=== PATIENT | male | born 1960 | race African-American/Black ===

== ENCOUNTER 2017-11-15 11:37 | Emergency (ER) | payer MEDICAID ==
[~2017-11-15] VITALS: Ht 182.9 cm; Wt 80.0 kg
[2017-11-15] MEDS ORDERED: ALBU2.5V13 IH (11:43)
[2017-11-15 12:46] LABS: BASOPHILS % 0.5 % (0.0-2.0); EOSINOPHILS % 0.1 % (0.0-5.0); HEMATOCRIT. 44.4 % (42.0-52.0); HEMOGLOBIN. 14.8 g/dL (14.0-18.0); MEAN CORPUSCULAR HEMOGLOBIN 28.2 pg (28.0-32.0); MEAN CORPUSCULAR VOLUME 84.5 fL (80.0-94.0); MONOCYTES % 13.7 % (2.0-8.0); NEUTROPHILS % 56.7 % (40.0-76.0); PLATELET 139 x1000/uL (130-400); RED BLOOD CELL COUNT 5.26 mill/uL (4.7-6.1); RED CELL DISTRIBUTION WIDTH 13.8 % (11.6-14.6)
[2017-11-15 12:54] LABS: INR 1.1; PROTHROMBIN TIME 11.4 sec (9.4-11.6)
[2017-11-15 12:56] LABS: CHLORIDE 100 mEq/L (98-107)
[2017-11-15 13:01] LABS: TROPONIN I < 0.02 ng/mL (0.00-0.04)
[2017-11-15 15:09] LABS: *AMPHETAMINES SCREEN URINE NEGATIVE (NEGATIVE); *BARBITURATES SCREEN URINE NEGATIVE (NEGATIVE); *BENZODIAZEPINES SCREEN URINE NEGATIVE (NEGATIVE); *COCAINE SCREEN URINE NEGATIVE (NEGATIVE); CANNABINOID URINE SCREEN PRESUMTIVE POSITIVE (NEGATIVE); METHADONE URINE SCREEN NEGATIVE (NEGATIVE); OPIATES URINE SCREEN NEGATIVE (NEGATIVE); PHENCYCLIDINE URINE SCREEN NEGATIVE (NEGATIVE)
[2017-11-15 15:57] VITALS: BP 138/83
== END 2017-11-15 15:58 | disposition home or self-care (01) ==
LOC: ER 11:37
DX: B34.9 Viral infection, unspecified (principal)
CPT/HCPCS: 36415; 71045; 80048; 80305; 82962; 83880; 84484; 85025; 85610; 93005; 99285

== ENCOUNTER 2022-02-18 09:24 | Inpatient (IN) | payer MEDICAID, OTHER ==
[~2022-02-18] VITALS: Ht 167.6 cm; Wt 68.9 kg
[~2022-02-18 09:24] MED LIST: ALBU2.5V13 IH; CELE200C PO; CYCL10TA21 PO; HYDR-4009 PO; HYDR200T35 PO; METH2.5T PO; P20 PO
[2022-02-18] MEDS ORDERED: SODIUM CHLORIDE 0.9% 1,000 ML IV ONE (10:15)
[2022-02-18 11:00] LABS: BASOPHILS % 0.8 % (0.0-2.0); EOSINOPHILS % 1.3 % (0.0-5.0); HEMATOCRIT. 40.3 % (42.0-52.0); HEMOGLOBIN. 13.1 g/dL (14.0-18.0); LYMPHOCYTES % 21.3 % (20.0-50.0); MEAN CORPUSCULAR HEMOGLOBIN 26.8 pg (28.0-32.0); MEAN CORPUSCULAR VOLUME 82.5 fL (80.0-94.0); MEAN PLATELET VOLUME 8.2 fl (7.4-10.4); MONOCYTES % 9.7 % (2.0-8.0); NEUTROPHILS % 66.9 % (40.0-76.0); PLATELET 315 x1000/uL (130-400); RED BLOOD CELL COUNT 4.89 mill/uL (4.7-6.1); RED CELL DISTRIBUTION WIDTH 17.4 % (11.6-14.6)
[2022-02-18 11:14] LABS: CHLORIDE 107 mEq/L (98-107)
[2022-02-18] MEDS ORDERED: PREDNISONE 20MG TABLET PO ONE (11:15)
[2022-02-18 11:23] LABS: CLARITY URINE CLEAR (CLEAR); COLOR URINE YELLOW (YELLOW); KETONES URINE NEGATIVE (NEGATIVE); LEUKOCYTE ESTERASE URINE NEGATIVE (NEGATIVE); NITRITE URINE NEGATIVE (NEGATIVE); OCCULT BLOOD URINE NEGATIVE (NEGATIVE); PH URINE 6.5 (4.5-8.0); PROTEIN URINE NEGATIVE (NEGATIVE); SPECIFIC GRAVITY URINE 1.015 (1.005-1.030)
[2022-02-18] MEDS ORDERED: PIPERACILLIN/TAZ 3.375G PREMIX 50 ML IV ONE (12:45)
[2022-02-18 13:14] LABS: INR 1.1; PROTHROMBIN TIME 11.4 sec (9.6-11.0)
[2022-02-18] MEDS ORDERED: IOHEXOL-300 100 ML BOTTLE ONE (13:22)
[2022-02-18 14:00] VITALS: BP 156/93
[2022-02-18] MEDS ORDERED: DIPHENHYDRAMINE 50MG/ML VIAL IV PRN (14:00)
[2022-02-18] MEDS ORDERED: NALOXONE HCL 0.4MG/ML VIAL IV PRN (14:00)
[2022-02-18] MEDS ORDERED: CLONIDINE 0.1MG TABLET PO PRN (14:00)
[2022-02-18] MEDS ORDERED: IPRATROPIUM/ALBUTEROL 0.5-3(2.5)MG/3ML NEB HHN PRN (14:00)
[2022-02-18] MEDS ORDERED: ACETAMINOPHEN 325MG TABLET PO PRN (14:00)
[2022-02-18] MEDS ORDERED: ONDANSETRON HCL 4MG/2ML INJ IV PRN (14:00)
[2022-02-18] MEDS: HYDROCODONE/ACETAMINOPHEN 5/325MG TABLET PO PRN ×2 (15:54→20:44)
[2022-02-18 16:00] VITALS: BP 156/93
[2022-02-18 20:00] VITALS: BP 153/86
[2022-02-19] VITALS: BP 112/62
[2022-02-19] MEDS: HYDROCODONE/ACETAMINOPHEN 5/325MG TABLET PO PRN ×4 (01:14→17:25)
[2022-02-19 04:00] VITALS: BP 145/92
[2022-02-19 06:47] LABS: EOSINOPHILS % 0.8 % (0.0-5.0); HEMATOCRIT. 36.7 % (42.0-52.0); HEMOGLOBIN. 11.8 g/dL (14.0-18.0); LYMPHOCYTES % 32.2 % (20.0-50.0); MEAN CORPUSCULAR HEMOGLOBIN 26.3 pg (28.0-32.0); MEAN CORPUSCULAR VOLUME 81.9 fL (80.0-94.0); MEAN PLATELET VOLUME 8.5 fl (7.4-10.4); MONOCYTES % 14.2 % (2.0-8.0); NEUTROPHILS % 51.8 % (40.0-76.0); PLATELET 276 x1000/uL (130-400); RED BLOOD CELL COUNT 4.48 mill/uL (4.7-6.1); RED CELL DISTRIBUTION WIDTH 17.1 % (11.6-14.6)
[2022-02-19 07:59] LABS: CHLORIDE 107 mEq/L (98-107)
[2022-02-19 08:00] VITALS: BP 145/92
[2022-02-19] MEDS: PREDNISONE 20MG TABLET PO SCH ×2 (09:09→17:25)
[2022-02-19 12:00] VITALS: BP 151/86
[2022-02-19] MEDS: PANTOPRAZOLE 40MG DR TABLET PO SCH (14:22)
[2022-02-19 16:05] VITALS: BP 119/77
[2022-02-19 20:00] VITALS: BP 148/97
[2022-02-19] MEDS: CELECOXIB 200MG CAPSULE PO SCH (22:09)
[2022-02-19] MEDS: HYDROXYCHLOROQUINE SULFATE 200MG TABLET PO SCH (22:10)
[2022-02-20] MEDS: METHYLPREDNISOLONE SOD SUCC 40 MG/ML VIAL IV SCH ×4 (00:39→17:01)
[2022-02-20] MEDS: HYDROCODONE/ACETAMINOPHEN 5/325MG TABLET PO PRN ×3 (00:39→15:11)
[2022-02-20 04:00] VITALS: BP 150/87
[2022-02-20] MEDS: PANTOPRAZOLE 40MG DR TABLET PO SCH (06:27)
[2022-02-20 07:29] LABS: CREATINE KINASE 73 IU/L (39-308)
[2022-02-20 08:00] VITALS: BP 154/92
[2022-02-20] MEDS: METHOTREXATE SODIUM 2 . 5MG TABLET PO SCH ×3 (08:22→17:02)
[2022-02-20] MEDS: CELECOXIB 200MG CAPSULE PO SCH ×2 (08:22→17:02)
[2022-02-20] MEDS: HYDROXYCHLOROQUINE SULFATE 200MG TABLET PO SCH ×2 (08:22→17:02)
[2022-02-20] MEDS: PREDNISONE 20MG TABLET PO SCH ×2 (08:22→17:02)
[2022-02-20] MEDS ORDERED: HYDR200T35 PO (15:52)
[2022-02-20] MEDS ORDERED: CELE200C PO (15:52)
[2022-02-20] MEDS ORDERED: PANT40TA51 MT (15:52)
[2022-02-20] MEDS ORDERED: FOLI-43 MT (15:52)
[2022-02-20] MEDS ORDERED: METH2.5T PO (15:52)
[2022-02-20] MEDS ORDERED: P20 MT (15:52)
[2022-02-20 16:00] VITALS: BP 139/89
[2022-02-20 18:01] VITALS: BP 139/89
[2022-02-23 15:09] LABS: ACTIN (SMOOTH MUSCLE) ANTIBODY 55 Units (0-19); ANA IFA Positive (.)
[2022-02-27 13:06] LABS: ATYPICAL P-ANCA <1:20 titer (Neg:<1:20); CYTOPLASMIC C-ANCA <1:20 titer (Neg:<1:20); PERINUCLEAR P-ANCA <1:20 titer (Neg:<1:20)
[2022-02-28 11:51] LABS: ANTI-MYELOPEROXIDASE AB < 0.2; ANTI-PROTEINASE 3 ABS < 0.2
== END 2022-02-20 18:43 | disposition home or self-care (01) | DRG 346 ==
LOC: ER 09:24 → 6EST 12:34 → ENRESERV 12:51
PROVIDERS: ADMIT Internal Medicine; ATTEND Internal Medicine
DX: M31.6 Other giant cell arteritis (principal); E88.09 Other disorders of plasma-protein metabolism, not elsewhere classified; D72.810 Lymphocytopenia; I10 Essential (primary) hypertension; M51.36 Other intervertebral disc degeneration, lumbar region; M51.37 Other intervertebral disc degeneration, lumbosacral region; J45.909 Unspecified asthma, uncomplicated; M77.9 Enthesopathy, unspecified; R73.03 Prediabetes; M50.323 Other cervical disc degeneration at C6-C7 level; R70.0 Elevated erythrocyte sedimentation rate; R79.82 Elevated C-reactive protein (CRP); Z88.8 Allergy status to other drugs, medicaments and biological substances; Z79.899 Other long term (current) drug therapy; H02.823 Cysts of right eye, unspecified eyelid
CPT/HCPCS: 36415; 70487; 71045; 73220; 73718; 80053; 81003; 82085; 82550; 82595; 83520; 83605; 85025; 85651; 86140; 86256; 86431; 93970; 99285; J2920; J7030; J7512; J8610; Q9967

== ENCOUNTER 2022-08-04 08:47 | Inpatient (IN) | payer MEDICAID, OTHER ==
[~2022-08-04] VITALS: Ht 180.3 cm; Wt 66.2 kg
[~2022-08-04 08:47] MED LIST changes: +FOLI-43 MT; +P20 MT; -P20 PO; +PANT40TA51 MT
[2022-08-04] MEDS ORDERED: ACETAMINOPHEN 325MG TABLET PO ONE (13:00)
[2022-08-04] MEDS ORDERED: FLUORESCEIN SODIUM 1MG/STRIP LEFTEYE ONE (13:00)
[2022-08-04] MEDS ORDERED: PREDNISONE 20MG TABLET PO ONE (13:15)
[2022-08-04] MEDS ORDERED: SODIUM CHLORIDE 0.9% 1,000 ML IV ONE (13:15)
[2022-08-04] MEDS ORDERED: HYDROCODONE/ACETAMINOPHEN 5/325MG TABLET PO ONE (13:15)
[2022-08-04 14:01] LABS: CHLORIDE 99 mEq/L (98-107)
[2022-08-04 14:17] LABS: CLARITY URINE CLEAR (CLEAR); COLOR URINE YELLOW (YELLOW); KETONES URINE 3+ (NEGATIVE); LEUKOCYTE ESTERASE URINE NEGATIVE (NEGATIVE); NITRITE URINE NEGATIVE (NEGATIVE); OCCULT BLOOD URINE NEGATIVE (NEGATIVE); PROTEIN URINE TRACE (NEGATIVE); SPECIFIC GRAVITY URINE 1.022 (1.005-1.030)
[2022-08-04 14:38] LABS: BASOPHILS % 1.3 % (0.0-2.0); EOSINOPHILS % 1.3 % (0.0-5.0); HEMATOCRIT. 40.8 % (42.0-52.0); HEMOGLOBIN. 13.3 g/dL (14.0-18.0); LYMPHOCYTES % 17.4 % (20.0-50.0); MEAN CORPUSCULAR HEMOGLOBIN 26.6 pg (28.0-32.0); PLATELET 288 x1000/uL (130-400); RED BLOOD CELL COUNT 4.98 mill/uL (4.7-6.1); RED CELL DISTRIBUTION WIDTH 14.3 % (11.6-14.6)
[2022-08-04 20:29] VITALS: BP 147/66
[2022-08-04 21:58] VITALS: BP 147/66
[2022-08-04] MEDS ORDERED: ONDANSETRON HCL 4MG/2ML INJ IV PRN (22:45)
[2022-08-04] MEDS ORDERED: ACETAMINOPHEN 325MG TABLET PO PRN (22:45)
[2022-08-04] MEDS ORDERED: NALOXONE HCL 0.4MG/ML VIAL IV PRN (22:45)
[2022-08-05] VITALS (7 sets, daily range): BP systolic 127–178; BP diastolic 65–87
[2022-08-05] MEDS: PREDNISONE 20MG TABLET PO SCH (08:48)
[2022-08-05] MEDS ORDERED: CLONIDINE 0.1MG TABLET PO PRN (09:30)
[2022-08-05] MEDS: HYDROCODONE/ACETAMINOPHEN 10/325MG TABLET PO PRN ×3 (09:54→23:52)
[2022-08-05] MEDS: AMLODIPINE 10MG TABLET PO SCH (09:55)
[2022-08-06 04:21] VITALS: BP 165/97
[2022-08-06 08:00] VITALS: BP 146/67
[2022-08-06] MEDS: AMLODIPINE 10MG TABLET PO SCH (08:10)
[2022-08-06] MEDS: PREDNISONE 20MG TABLET PO SCH (08:10)
[2022-08-06 12:00] VITALS: BP 147/81
[2022-08-06] MEDS ORDERED: PREDNISONE 20MG TABLET PO SCH (13:00)
[2022-08-06] MEDS ORDERED: SULFACETAMIDE SODIUM 10% OPHTH DROPS 15ML LEFTEYE SCH (13:00)
[2022-08-06] MEDS ORDERED: P20 PO (13:37)
[2022-08-06 14:33] VITALS: BP 147/81
[2022-08-06 16:00] VITALS: BP 145/78
[2022-08-06 17:33] LABS: CREATINE KINASE 64 IU/L (39-308)
[2022-08-09 10:09] LABS: ACTIN (SMOOTH MUSCLE) ANTIBODY 67 Units (0-19)
[2022-08-10 14:09] LABS: ANA IFA Positive (.)
== END 2022-08-06 16:55 | disposition home or self-care (01) | DRG 346 ==
LOC: ER 08:56 → 8WST 15:18 → EDBEDREQ 15:27 → EDBEDREQTM 15:27
PROVIDERS: ADMIT Internal Medicine; ATTEND Internal Medicine
PROC: 08J1XZZ Inspection of Left Eye, External Approach (ICD-10-PCS; principal; 2022-08-04)
DX: M31.6 Other giant cell arteritis (principal); E87.1 Hypo-osmolality and hyponatremia; I10 Essential (primary) hypertension; Z20.822 Contact with and (suspected) exposure to COVID-19; M06.9 Rheumatoid arthritis, unspecified; H10.9 Unspecified conjunctivitis; M77.9 Enthesopathy, unspecified; M51.36 Other intervertebral disc degeneration, lumbar region; J45.909 Unspecified asthma, uncomplicated; F12.90 Cannabis use, unspecified, uncomplicated
CPT/HCPCS: 36415; 71045; 80053; 81003; 82085; 82550; 85025; 85651; 86235; 86256; 86431; 87426; 99285; J7030; J7512

== ENCOUNTER 2022-09-26 09:55 | Emergency (ER) | payer MEDICAID, OTHER ==
[~2022-09-26] VITALS: Ht 175.3 cm; Wt 73.0 kg
[~2022-09-26 09:55] MED LIST changes: -ALBU2.5V13 IH; -CELE200C PO; -CYCL10TA21 PO; -FOLI-43 MT; -HYDR200T35 PO; -METH2.5T PO; -P20 MT; +P20 PO; -PANT40TA51 MT
[2022-09-26 10:10] VITALS: BP 141/94
[2022-09-26] MEDS ORDERED: MAGNESIUM/ALUMINUM HYDROXIDE/SIMETHICONE 30ML UDC PO ONE (10:45)
[2022-09-26] MEDS ORDERED: VISCOUS LIDOCAINE 2% 15 ML UDC MM ONE (10:45)
[2022-09-26] MEDS ORDERED: ONDANSETRON 4MG ODT PO ONE (10:45)
[2022-09-26 12:15] LABS: BASOPHILS % 1.2 % (0.0-2.0); HEMATOCRIT. 47.3 % (42.0-52.0); HEMOGLOBIN. 16.2 g/dL (14.0-18.0); LYMPHOCYTES % 30.2 % (20.0-50.0); MEAN CORPUSCULAR HEMOGLOBIN 28.5 pg (28.0-32.0); MEAN CORPUSCULAR VOLUME 83.1 fL (80.0-94.0); MONOCYTES % 13.3 % (2.0-8.0); NEUTROPHILS % 54.3 % (40.0-76.0); RED BLOOD CELL COUNT 5.69 mill/uL (4.7-6.1); RED CELL DISTRIBUTION WIDTH 17.4 % (11.6-14.6)
[2022-09-26 12:25] LABS: CHLORIDE 103 mEq/L (98-107)
[2022-09-26 12:34] LABS: ETHANOL BLOOD < 10 mg/dL
[2022-09-26 12:37] LABS: MEAN PLATELET VOLUME 8.6 fl (7.4-10.4); PLATELET 267 x1000/uL (130-400)
[2022-09-26] MEDS ORDERED: ONDANSETRON 4MG ODT PO NR (14:45)
[2022-09-26] MEDS ORDERED: VISCOUS LIDOCAINE 2% 15 ML UDC MM NR (14:45)
[2022-09-26] MEDS ORDERED: MAGNESIUM/ALUMINUM HYDROXIDE/SIMETHICONE 30ML UDC PO NR (14:45)
[2022-09-26 14:54] LABS: CLARITY URINE CLEAR (CLEAR); COLOR URINE YELLOW (YELLOW); KETONES URINE 1+ (NEGATIVE); LEUKOCYTE ESTERASE URINE NEGATIVE (NEGATIVE); NITRITE URINE NEGATIVE (NEGATIVE); OCCULT BLOOD URINE NEGATIVE (NEGATIVE); PROTEIN URINE TRACE (NEGATIVE); SPECIFIC GRAVITY URINE 1.022 (1.005-1.030)
[2022-09-26 15:13] LABS: *AMPHETAMINES SCREEN URINE NEGATIVE (NEGATIVE); *BARBITURATES SCREEN URINE NEGATIVE (NEGATIVE); *BENZODIAZEPINES SCREEN URINE NEGATIVE (NEGATIVE); *COCAINE SCREEN URINE NEGATIVE (NEGATIVE); CANNABINOID URINE SCREEN PRESUMTIVE POSITIVE (NEGATIVE); METHADONE URINE SCREEN NEGATIVE (NEGATIVE); OPIATES URINE SCREEN NEGATIVE (NEGATIVE); PHENCYCLIDINE URINE SCREEN NEGATIVE (NEGATIVE)
[2022-09-26] MEDS ORDERED: MAG-55 MT (15:47)
[2022-09-26] MEDS ORDERED: PROT40 MT (15:47)
== END 2022-09-26 16:36 | disposition home or self-care (01) ==
LOC: ER 09:55
DX: R07.9 Chest pain, unspecified (principal); I10 Essential (primary) hypertension; J45.909 Unspecified asthma, uncomplicated
CPT/HCPCS: 36415; 71045; 80053; 80305; 80320; 81003; 83880; 84484; 85025; 93005; 99285; Q0162; G0480

== ENCOUNTER 2025-04-03 17:03 | Inpatient (IN) | payer MEDICARE, MEDICAID ==
[~2025-04-03] VITALS: Ht 177.8 cm; Wt 101.2 kg
[~2025-04-03 17:03] MED LIST changes: +ASPI-1497 MT; +CLOP-31 PO; +CLOP75TA33 PO; +LIP40 PO; +MAG-55 MT; +METR-167 MT; +MIDO5TAB4 MT; -P20 PO; +PROT40 MT; +TAMS-54 MT
[2025-04-03] MEDS: ONDANSETRON HCL 4MG/2ML INJ IV ONE (17:40)
[2025-04-03] MEDS: SODIUM CHLORIDE 0.9% 1,000 ML IV ONE (17:41)
[2025-04-03] MEDS: MORPHINE SULFATE 4 MG/ML INJ (FOR IV/IM USE) IV ONE (17:41)
[2025-04-03 17:42] LABS: BASOPHILS % 1.2 % (0.0-2.0); EOSINOPHILS % 0.7 % (0.0-5.0); HEMATOCRIT. 38.7 % (42.0-52.0); HEMOGLOBIN. 12.5 g/dL (14.0-18.0); LYMPHOCYTES % 23.6 % (20.0-50.0); MEAN PLATELET VOLUME 10.1 fl (7.4-10.4); MONOCYTES % 7.7 % (2.0-8.0); NEUTROPHILS % 66.8 % (40.0-76.0); PLATELET 186 x1000/uL (130-400); RED BLOOD CELL COUNT 4.59 mill/uL (4.7-6.1); RED CELL DISTRIBUTION WIDTH 17.6 % (11.6-14.6)
[2025-04-03 17:57] LABS: INR 1.1
[2025-04-03 17:58] LABS: CREATININE 0.9 mg/dL (0.6-1.3); ETHANOL BLOOD < 10 mg/dL (<10); UREA NITROGEN BLOOD 12 mg/dL (9-23)
[2025-04-03 18:00] LABS: ASPARTATE AMINOTRANSFERASE 28 IU/L (<34); BILIRUBIN DIRECT 0.2 mg/dL (<=3.0); BILIRUBIN TOTAL 0.5 mg/dL (0.1-1.0); PROTEIN TOTAL 8.3 g/dL (6.0-8.3)
[2025-04-03] MEDS ORDERED: HYDROMORPHONE HCL/PF 2MG/ML INJ IV ONE (18:00)
[2025-04-03] MEDS: HYDROMORPHONE HCL/PF 1MG/ML INJ IV NR (18:49)
[2025-04-03] MEDS: SODIUM CHLORIDE 0.9% (SEPSIS BOLUS) IV ONE (20:26)
[2025-04-03] MEDS: PIPERACILLIN/TAZO 3.375G/50ML 50 ML IV ONE (20:27)
[2025-04-03] MEDS: VANCOMYCIN 1G PREMIX 200 ML IV ONE (20:42)
[2025-04-03 20:49] LABS: CLARITY URINE CLOUDY (CLEAR); COLOR URINE YELLOW (YELLOW); GLUCOSE URINE NEGATIVE (NEGATIVE); KETONES URINE 1+ (NEGATIVE); LEUKOCYTE ESTERASE URINE 2+ (NEGATIVE); NITRITE URINE POSITIVE (NEGATIVE); OCCULT BLOOD URINE 2+ (NEGATIVE); PH URINE 7.0 (4.5-8.0); PROTEIN URINE TRACE (NEGATIVE); SPECIFIC GRAVITY URINE 1.064 (1.005-1.030); UROBILINOGEN URINE 1.0 E.U./dL (0.2-1.0)
[2025-04-03 20:56] LABS: *AMPHETAMINES SCREEN URINE NEGATIVE (NEGATIVE); *BARBITURATES SCREEN URINE NEGATIVE (NEGATIVE); *BENZODIAZEPINES SCREEN URINE NEGATIVE (NEGATIVE); *COCAINE SCREEN URINE NEGATIVE (NEGATIVE)
[2025-04-03 20:57] LABS: CANNABINOID URINE SCREEN PRESUMPTIVE POSITIVE (NEGATIVE); ECSTASY MDMA SCREEN URINE NEGATIVE (NEGATIVE); METHADONE URINE SCREEN NEGATIVE (NEGATIVE); OPIATES URINE SCREEN PRESUMPTIVE POSITIVE (NEGATIVE); PHENCYCLIDINE URINE SCREEN NEGATIVE (NEGATIVE)
[2025-04-03 20:59] LABS: BACTERIA URINE 2+; SQUAMOUS EPITHELIAL CELL URINE 1+ /lpf (RARE/1+)
[2025-04-03] MEDS: ALBUTEROL (0.083%) 2.5MG/3ML NEB HHN SCH (21:00)
[2025-04-03] MEDS: IPRATROPIUM BROMIDE (0.02%) 0.5MG/2.5ML NEB HHN SCH (21:00)
[2025-04-03 21:19] LABS: BG BASE EXCESS -11.3 mmol/L (-2.0-3.0); BG CARBOXYHEMOGLOBIN 0.7 % (0.5-1.5); BG DEOXYHEMOGLOBIN 7.5 % (0.0-5.0); BG FLOW(L/min) 15.00 L/min; BG HCO3 ACT 18.7 mmol/L (21.0-28.0); BG METHEMOGLOBIN 0.3 % (0.5-1.5); BG OXYGEN SATURATION 92.4 % (94.0-98.0); BG OXYHEMOGLOBIN 91.5 % (94.0-98.0); BG PCO2 58.8 mmHg (35.0-48.0); BG PH 7.120 (7.350-7.450); BG PO2 84.1 mmHg (83.0-108.0); BG SAMPLE SITE RIGHT RADIAL; BG TOTAL HEMOGLOBIN 15.1 g/dL (13.5-17.5); BG VENT MODE MASK - NRB
[2025-04-03 21:19] LABS: TROPONIN I HIGH SENSITIVITY 484 ng/L (3.0-53)
[2025-04-03] MEDS: METHYLPREDNISOLONE SOD SUCC 125MG/2ML (ACT-O-VIAL) IV ONE (21:33)
[2025-04-03] MEDS: MAGNESIUM 2 G PREMIX 50 ML IV ONE (21:34)
[2025-04-03] MEDS ORDERED: ACETAMINOPHEN 325MG TABLET PO PRN (22:15)
[2025-04-03] MEDS ORDERED: MAGNESIUM/ALUMINUM HYDROXIDE/SIMETHICONE 30ML UDC PO PRN (22:15)
[2025-04-03] MEDS ORDERED: IPRATROPIUM/ALBUTEROL 0.5-3(2.5)MG/3ML NEB NEB PRN (22:15)
[2025-04-03] MEDS ORDERED: HYDROCODONE/ACETAMINOPHEN 5/325MG TABLET PO PRN (22:15)
[2025-04-03] MEDS ORDERED: MORPHINE SULFATE 2 MG/ML INJ (NOT FOR IM USE) IV PRN (22:15)
[2025-04-03] MEDS ORDERED: NALOXONE HCL 0.4MG/ML VIAL IV PRN (22:30)
[2025-04-03 22:55] LABS: INR 2.7
[2025-04-03] MEDS ORDERED: AZITHROMYCIN 500MG/250ML 250 ML IV SCH (23:00)
[2025-04-03] MEDS ORDERED: AZITHROMYCIN 500 MG in DEXT 5% WATER 250 ML IV SCH (23:00)
[2025-04-03 23:14] VITALS: BP 139/106; PULSE 113; RESP 33; TEMP 36.5848
[2025-04-03 23:15] VITALS: RESP 38
[2025-04-03] MEDS ORDERED: IOHEXOL-300 100 ML BOTTLE ONE (23:15)
[2025-04-03 23:55] VITALS: RESP 33
[2025-04-04] VITALS (144 sets, daily range): BP systolic 31–155; BP diastolic 14–135; PULSE 51–154; RESP 9–40; TEMP 36.1–37.1; O2SAT 66–100
[2025-04-04 00:02] LABS: BG BASE EXCESS -13.6 mmol/L (-2.0-3.0); BG CARBOXYHEMOGLOBIN 0.8 % (0.5-1.5); BG DEOXYHEMOGLOBIN 12.8 % (0.0-5.0); BG FRACTION INSPIRED OXYGEN 90; BG HCO3 ACT 15.7 mmol/L (21.0-28.0); BG METHEMOGLOBIN 0.3 % (0.5-1.5); BG OXYGEN SATURATION 87.1 % (94.0-98.0); BG OXYHEMOGLOBIN 86.1 % (94.0-98.0); BG PCO2 49.1 mmHg (35.0-48.0); BG PH 7.123 (7.350-7.450); BG PO2 68.0 mmHg (83.0-108.0); BG SAMPLE SITE LEFT BRACHIAL; BG TOTAL HEMOGLOBIN 16.1 g/dL (13.5-17.5); BG VENT MODE MASK - BIPAP
[2025-04-04] MEDS: AZITHROMYCIN 500MG/250ML 250 ML IV SCH (00:17)
[2025-04-04] MEDS ORDERED: IPRATROPIUM/ALBUTEROL 0.5-3(2.5)MG/3ML NEB NEB PRN (01:15)
[2025-04-04] MEDS ORDERED: AZITHROMYCIN 500MG/250ML 250 ML IV SCH ×2 (01:15→21:00)
[2025-04-04] MEDS ORDERED: FENTANYL 2500MCG/250ML PMX 250 ML IV ONE (01:15)
[2025-04-04] MEDS ORDERED: CEFTRIAXONE 1GM/50ML 50 ML IV ONE (01:15)
[2025-04-04] MEDS ORDERED: DOPAMINE 400MG/250ML PREMIX 250 ML IV ONE (01:31)
[2025-04-04] MEDS: PHENYLEPHRINE 50MG/250ML PMX 250 ML IV PRN (01:43)
[2025-04-04] MEDS: DOPAMINE 400MG/250ML PREMIX 250 ML IV PRN (01:43)
[2025-04-04] MEDS ORDERED: PROPOFOL 10MG/ML 100ML 100 ML IV PRN ×2 (01:45→07:45)
[2025-04-04] MEDS: SODIUM CHLORIDE 0.9% 500 ML IV ONE ×2 (02:44)
[2025-04-04 04:27] LABS: BG BASE EXCESS -19.5 mmol/L (-2.0-3.0); BG CARBOXYHEMOGLOBIN 0.6 % (0.5-1.5); BG DEOXYHEMOGLOBIN 16.2 % (0.0-5.0); BG FRACTION INSPIRED OXYGEN 100; BG HCO3 ACT 12.7 mmol/L (21.0-28.0); BG METHEMOGLOBIN 0.3 % (0.5-1.5); BG OXYGEN SATURATION 83.7 % (94.0-98.0); BG OXYHEMOGLOBIN 82.9 % (94.0-98.0); BG PCO2 55.7 mmHg (35.0-48.0); BG PEEP (cmH2O) 5.0 cmH2O; BG PH 6.975 (7.350-7.450); BG PO2 68.5 mmHg (83.0-108.0); BG SAMPLE SITE LEFT BRACHIAL; BG TIDAL VOLUME(mL) 450.0 mL; BG TOTAL HEMOGLOBIN 15.9 g/dL (13.5-17.5); BG VENT MODE AC; BG VENT RATE 16.0 set
[2025-04-04] MEDS: VASOPRESSIN 20 UNIT in SODIUM CHLORIDE 0.9% 99 ML IV PRN (04:51)
[2025-04-04] MEDS: NOREPINEPHRINE 8MG/250ML PMX 250 ML IV PRN (05:29)
[2025-04-04] MEDS ORDERED: CEFTRIAXONE 1GM/50ML 50 ML IV SCH (06:00)
[2025-04-04] MEDS: CEFTRIAXONE 1GM/50ML 50 ML IV SCH (06:30)
[2025-04-04 07:03] LABS: CREATININE 1.3 mg/dL (0.6-1.3)
[2025-04-04 07:04] LABS: UREA NITROGEN BLOOD 18 mg/dL (9-23)
[2025-04-04 07:06] LABS: PHOSPHORUS 7.9 mg/dL (2.5-4.9)
[2025-04-04 07:09] LABS: CREATINE KINASE MB FRACTION 15.1 ng/mL (0.5-3.6)
[2025-04-04] MEDS ORDERED: SODIUM BICARBONATE 8.4% 50MEQ/50ML SYR IV SCH (07:15)
[2025-04-04] MEDS: SODIUM BICARBONATE 8.4% 50MEQ/50ML SYR IV SCH ×2 (07:30→10:09)
[2025-04-04 07:36] LABS: TROPONIN I HIGH SENSITIVITY 4036.0 ng/L (3.0-53)
[2025-04-04] MEDS ORDERED: MIDAZOLAM 100MG/100ML PMX 100 ML IV PRN (07:45)
[2025-04-04] MEDS ORDERED: FENTANYL 2500MCG/250ML PMX 250 ML IV PRN (07:45)
[2025-04-04] MEDS: FENTANYL CITRATE 2,500 MCG in SODIUM CHLORIDE 0.9% 200 ML IV PRN (08:26)
[2025-04-04] MEDS: MIDAZOLAM 100MG/100ML PMX 100 ML IV PRN (08:27)
[2025-04-04] MEDS: SODIUM BICARBONATE 100 MEQ in DEXTROSE 5% WATER 900 ML IV SCH (08:59)
[2025-04-04] MEDS: METHYLPREDNISOLONE SOD SUCC 125MG/2ML (ACT-O-VIAL) IV SCH (09:12)
[2025-04-04] MEDS: THIAMINE HCL 100MG TABLET PO SCH (09:13)
[2025-04-04] MEDS: PANTOPRAZOLE SODIUM 40 MG/VIAL IV SCH (09:13)
[2025-04-04] MEDS: ASPIRIN 81MG EC TABLET PO SCH (09:15)
[2025-04-04] MEDS: ENOXAPARIN 40MG/0.4ML SYR SUBCUT SCH (09:16)
[2025-04-04 09:57] LABS: BG BASE EXCESS -12.8 mmol/L (-2.0-3.0); BG CARBOXYHEMOGLOBIN 0.9 % (0.5-1.5); BG DEOXYHEMOGLOBIN 12.5 % (0.0-5.0); BG FRACTION INSPIRED OXYGEN 100; BG HCO3 ACT 14.5 mmol/L (21.0-28.0); BG METHEMOGLOBIN 0.1 % (0.5-1.5); BG OXYGEN SATURATION 87.4 % (94.0-98.0); BG OXYHEMOGLOBIN 86.5 % (94.0-98.0); BG PCO2 38.2 mmHg (35.0-48.0); BG PEEP (cmH2O) 10.0 cmH2O; BG PH 7.198 (7.350-7.450); BG PO2 57.8 mmHg (83.0-108.0); BG SAMPLE SITE RIGHT BRACHIAL; BG TIDAL VOLUME(mL) 500.0 mL; BG TOTAL HEMOGLOBIN 14.2 g/dL (13.5-17.5); BG VENT MODE VENT - AC; BG VENT RATE 26.0 set
[2025-04-04] MEDS ORDERED: DOCUSATE SODIUM 100MG CAPSULE PO PRN (10:30)
[2025-04-04] MEDS ORDERED: MORPHINE SULFATE 2 MG/ML INJ (NOT FOR IM USE) IV PRN (10:30)
[2025-04-04] MEDS ORDERED: ENOXAPARIN 40MG/0.4ML SYR SUBCUT SCH (10:30)
[2025-04-04] MEDS ORDERED: ONDANSETRON HCL 4MG/2ML INJ IV PRN (10:30)
[2025-04-04] MEDS: CALCIUM GLUCONATE 100MG/ML 10ML VIAL IV SCH (10:41)
[2025-04-04] MEDS: SODIUM POLYSTYRENE SULFONATE 15 G/60 ML BOT PO SCH (10:49)
[2025-04-04] MEDS: SODIUM CHLORIDE 0.9% 1,000 ML IV SCH (10:50)
[2025-04-04] MEDS: DEXTROSE 50% WATER 50ML SYRINGE IV SCH (10:51)
[2025-04-04] MEDS: INSULIN REGULAR (HUMULIN R) 1000UNITS/10ML VIAL IV SCH (10:53)
[2025-04-04] MEDS: VANCOMYCIN 750MG PREMIX 150 ML IV SCH (11:15)
[2025-04-04] MEDS: IPRATROPIUM BROMIDE (0.02%) 0.5MG/2.5ML NEB HHN SCH (11:35)
[2025-04-04] MEDS: BLOOD SUGAR DIAGNOSTIC STRIP TEST SCH (12:11)
[2025-04-04 12:17] LABS: BG BASE EXCESS -11.8 mmol/L (-2.0-3.0); BG CARBOXYHEMOGLOBIN 0.9 % (0.5-1.5); BG DEOXYHEMOGLOBIN 15.5 % (0.0-5.0); BG FRACTION INSPIRED OXYGEN 100; BG HCO3 ACT 16.1 mmol/L (21.0-28.0); BG METHEMOGLOBIN 0.0 % (0.5-1.5); BG OXYGEN SATURATION 84.4 % (94.0-98.0); BG OXYHEMOGLOBIN 83.6 % (94.0-98.0); BG PCO2 43.5 mmHg (35.0-48.0); BG PEEP (cmH2O) 10.0 cmH2O; BG PH 7.185 (7.350-7.450); BG PO2 54.0 mmHg (83.0-108.0); BG SAMPLE SITE RIGHT BRACHIAL; BG TIDAL VOLUME(mL) 500.0 mL; BG TOTAL HEMOGLOBIN 14.6 g/dL (13.5-17.5); BG VENT MODE VENT - AC; BG VENT RATE 28.0 set
[2025-04-04 12:18] LABS: BASOPHILS % 0.2 % (0.0-2.0); EOSINOPHILS % 0.1 % (0.0-5.0); HEMATOCRIT. 44.0 % (42.0-52.0); HEMOGLOBIN. 13.2 g/dL (14.0-18.0); LYMPHOCYTES % 9.4 % (20.0-50.0); MEAN PLATELET VOLUME 10.8 fl (7.4-10.4); MONOCYTES % 4.9 % (2.0-8.0); NEUTROPHILS % 85.4 % (40.0-76.0); PLATELET 151 x1000/uL (130-400); RED BLOOD CELL COUNT 4.92 mill/uL (4.7-6.1); RED CELL DISTRIBUTION WIDTH 18.6 % (11.6-14.6)
[2025-04-04] MEDS: INSULIN LISPRO 100 UNITS/ML SUBCUT SCH (12:22)
[2025-04-04] MEDS: DOXYCYCLINE 100MG/100ML 100 ML IV SCH (13:16)
[2025-04-04 13:22] LABS: RESPIRATORY SYNCYTIAL VIRUS Not Detected (Not Detectd)
[2025-04-04 13:23] LABS: INFLUENZA TYPE A Presumptive Negative (Pres. Neg.); INFLUENZA TYPE B Presumptive Negative (Pres. Neg.)
[2025-04-04] MEDS: PIPERACILLIN/TAZO 3.375G/50ML 50 ML IV SCH (14:18)
[2025-04-04] MEDS: SODIUM CHLORIDE 0.9% IV SCH (15:33)
[2025-04-04] MEDS: NOREPINEPHRINE 32 MG in DEXT 5% WATER 218 ML IV PRN (15:33)
[2025-04-04] MEDS: EPINEPHRINE 10 MG in SODIUM CHLORIDE 0.9% 240 ML IV PRN (15:33)
[2025-04-04] MEDS: SODIUM BICARBONATE IV SCH (15:33)
[2025-04-04] MEDS ORDERED: NOREPINEPHRINE 32 MG in DEXT 5% WATER 218 ML IV PRN (16:00)
[2025-04-04 17:10] LABS: CREATINE KINASE MB FRACTION 18.6 ng/mL (0.5-3.6); UREA NITROGEN BLOOD 26 mg/dL (9-23)
[2025-04-04 17:12] LABS: BILIRUBIN TOTAL 0.8 mg/dL (0.1-1.0); PHOSPHORUS 3.9 mg/dL (2.5-4.9); PROTEIN TOTAL 6.2 g/dL (6.0-8.3)
[2025-04-04 17:26] LABS: TROPONIN I HIGH SENSITIVITY 3991.0 ng/L (3.0-53)
[2025-04-04 17:27] LABS: CREATININE 1.9 mg/dL (0.6-1.3)
[2025-04-04] MEDS: NA PHOS,M-B/NA PHOS,DI-BA ENEMA 118ML PR PRN (17:37)
[2025-04-04 17:52] LABS: ASPARTATE AMINOTRANSFERASE > 6000 IU/L (<34)
[2025-04-04 18:34] LABS: BG BASE EXCESS -14.8 mmol/L (-2.0-3.0); BG CARBOXYHEMOGLOBIN 1.0 % (0.5-1.5); BG DEOXYHEMOGLOBIN 9.7 % (0.0-5.0); BG FRACTION INSPIRED OXYGEN 100; BG HCO3 ACT 13.2 mmol/L (21.0-28.0); BG METHEMOGLOBIN 0.2 % (0.5-1.5); BG OXYGEN SATURATION 90.2 % (94.0-98.0); BG OXYHEMOGLOBIN 89.1 % (94.0-98.0); BG PCO2 38.1 mmHg (35.0-48.0); BG PEEP (cmH2O) 10.0 cmH2O; BG PH 7.156 (7.350-7.450); BG PO2 68.0 mmHg (83.0-108.0); BG SAMPLE SITE RIGHT RADIAL; BG TIDAL VOLUME(mL) 500.0 mL; BG TOTAL HEMOGLOBIN 14.8 g/dL (13.5-17.5); BG VENT MODE VENT - AC; BG VENT RATE 28.0 set
[2025-04-04] MEDS: SODIUM BICARBONATE 150 MEQ in SODIUM CHLORIDE 0.9% 850 ML IV SCH (20:17)
[2025-04-04] MEDS ORDERED: POLYVINYL ALCOHOL OPHTH DROPS 15ML BOTHEYE PRN (21:00)
[2025-04-04] MEDS: INSULIN REGULAR (HUMULIN R) 1000UNITS/10ML VIAL IV NR (21:45)
[2025-04-04] MEDS: DEXTROSE 50% WATER 50ML SYRINGE IV NR ×2 (21:45→22:44)
[2025-04-04] MEDS: CALCIUM GLUCONATE 1GM PREMIX 50 ML IV NR (21:46)
[2025-04-04] MEDS: VANCOMYCIN 1GM/200ML PMX (BAXTER) IV SCH (22:22)
[2025-04-04] MEDS: PHENYLEPHRINE 100 MG in DEXT 5% WATER 240 ML IV PRN (23:13)
[2025-04-05] VITALS (108 sets, daily range): BP systolic 57–134; BP diastolic 15–117; PULSE 89–136; RESP 20–30; TEMP 37.1–38.7; O2SAT 53–100
[2025-04-05 01:15] LABS: CREATININE 2.8 mg/dL (0.6-1.3)
[2025-04-05 01:17] LABS: UREA NITROGEN BLOOD 35.0 mg/dL (9-23)
[2025-04-05 03:35] LABS: BG BASE EXCESS -12.8 mmol/L (-2.0-3.0); BG CARBOXYHEMOGLOBIN 0.5 % (0.5-1.5); BG DEOXYHEMOGLOBIN 14.3 % (0.0-5.0); BG FRACTION INSPIRED OXYGEN 100; BG HCO3 ACT 14.7 mmol/L (21.0-28.0); BG METHEMOGLOBIN 0.3 % (0.5-1.5); BG OXYGEN SATURATION 85.6 % (94.0-98.0); BG OXYHEMOGLOBIN 84.9 % (94.0-98.0); BG PCO2 39.1 mmHg (35.0-48.0); BG PEEP (cmH2O) 10.0 cmH2O; BG PH 7.192 (7.350-7.450); BG PO2 56.4 mmHg (83.0-108.0); BG SAMPLE SITE ALINE; BG TIDAL VOLUME(mL) 500.0 mL; BG TOTAL HEMOGLOBIN 15.2 g/dL (13.5-17.5); BG VENT MODE VENT - AC; BG VENT RATE 28.0 set
[2025-04-05] MEDS: SODIUM BICARBONATE 8.4% 50MEQ/50ML SYR IV NR (04:14)
[2025-04-05] MEDS: SODIUM BICARBONATE 150 MEQ in DEXTROSE 5% WATER 850 ML IV SCH ×2 (05:20→22:25)
[2025-04-05] MEDS: VECURONIUM BROMIDE 50 MG in DEXTROSE 5% WATER 50 ML IV PRN (05:42)
[2025-04-05 06:10] LABS: HEMATOCRIT. 41.3 % (42.0-52.0); HEMOGLOBIN. 13.3 g/dL (14.0-18.0); RED BLOOD CELL COUNT 4.88 mill/uL (4.7-6.1); RED CELL DISTRIBUTION WIDTH 17.9 % (11.6-14.6)
[2025-04-05 06:31] LABS: CREATININE 3.3 mg/dL (0.6-1.3); TRIGLYCERIDE 79 mg/dL (0-150); UREA NITROGEN BLOOD 37 mg/dL (9-23)
[2025-04-05 06:34] LABS: PHOSPHORUS 11.9 mg/dL (2.5-4.9)
[2025-04-05 08:41] LABS: BG BASE EXCESS -8.5 mmol/L (-2.0-3.0); BG CARBOXYHEMOGLOBIN 0.5 % (0.5-1.5); BG DEOXYHEMOGLOBIN 14.7 % (0.0-5.0); BG FRACTION INSPIRED OXYGEN 100; BG HCO3 ACT 16.7 mmol/L (21.0-28.0); BG METHEMOGLOBIN 0.3 % (0.5-1.5); BG OXYGEN SATURATION 85.2 % (94.0-98.0); BG OXYHEMOGLOBIN 84.5 % (94.0-98.0); BG PCO2 34.1 mmHg (35.0-48.0); BG PEEP (cmH2O) 10.0 cmH2O; BG PH 7.308 (7.350-7.450); BG PO2 54.6 mmHg (83.0-108.0); BG SAMPLE SITE ALINE; BG TIDAL VOLUME(mL) 500.0 mL; BG TOTAL HEMOGLOBIN 15.0 g/dL (13.5-17.5); BG VENT MODE VENT - AC; BG VENT RATE 30.0 set
[2025-04-05] MEDS: ASPIRIN 81MG TABLET PO SCH (09:27)
[2025-04-05] MEDS: CALCIUM GLUCONATE 100MG/ML 10ML VIAL IV SCH (10:50)
[2025-04-05] MEDS: DEXT 5%/0.45% NACL 1000ML 1,000 ML IV SCH (10:50)
[2025-04-05] MEDS: SODIUM BICARBONATE 8.4% 50MEQ/50ML SYR IV SCH (12:16)
[2025-04-05] MEDS: ACETAMINOPHEN 650MG/20.3ML UDC NG PRN (13:02)
[2025-04-05 14:50] LABS: BG BASE EXCESS -6.9 mmol/L (-2.0-3.0); BG CARBOXYHEMOGLOBIN 0.7 % (0.5-1.5); BG DEOXYHEMOGLOBIN 12.4 % (0.0-5.0); BG FRACTION INSPIRED OXYGEN 100; BG HCO3 ACT 21.4 mmol/L (21.0-28.0); BG METHEMOGLOBIN 0.1 % (0.5-1.5); BG OXYGEN SATURATION 87.5 % (94.0-98.0); BG OXYHEMOGLOBIN 86.8 % (94.0-98.0); BG PCO2 54.3 mmHg (35.0-48.0); BG PEEP (cmH2O) 10.0 cmH2O; BG PH 7.214 (7.350-7.450); BG PIP 20.0 cmH2O; BG PO2 67.6 mmHg (83.0-108.0); BG SAMPLE SITE ALINE; BG TOTAL HEMOGLOBIN 14.6 g/dL (13.5-17.5); BG VENT MODE VENT - P/C; BG VENT RATE 20.0 set
[2025-04-05 14:59] LABS: PLATELET 113 x1000/uL (130-400)
[2025-04-05 16:27] LABS: BAND% 2.0 % (1.0-6.0); LYMPHOCYTES % MANUAL 5.0 % (20.0-50.0); MONOCYTES % MANUAL 7.0 % (2.0-8.0); NEUTROPHILS % MANUAL 86.0 % (45.0-75.0); PLATELET ESTIMATE NORMAL
[2025-04-05] MEDS: CALCIUM ACETATE 667MG CAPSULE PO SCH (17:38)
[2025-04-05] MEDS: METOCLOPRAMIDE HCL 10MG/2ML VIAL IV SCH (17:45)
[2025-04-05 19:01] LABS: UREA NITROGEN BLOOD 44.0 mg/dL (9-23)
[2025-04-05 19:03] LABS: CREATININE 4.4 mg/dL (0.6-1.3)
[2025-04-05] MEDS ORDERED: CALCIUM GLUCONATE 1,000 MG in DEXT 5% WATER 90 ML IV ONE (19:45)
[2025-04-05] MEDS ORDERED: METOCLOPRAMIDE HCL 10MG/2ML VIAL IV PRN (20:00)
[2025-04-05 20:54] LABS: BG BASE EXCESS -8.8 mmol/L (-2.0-3.0); BG CARBOXYHEMOGLOBIN 0.9 % (0.5-1.5); BG DEOXYHEMOGLOBIN 8.1 % (0.0-5.0); BG FRACTION INSPIRED OXYGEN 100; BG HCO3 ACT 19.8 mmol/L (21.0-28.0); BG METHEMOGLOBIN 0.2 % (0.5-1.5); BG OXYGEN SATURATION 91.8 % (94.0-98.0); BG OXYHEMOGLOBIN 90.8 % (94.0-98.0); BG PCO2 53.1 mmHg (35.0-48.0); BG PEEP (cmH2O) 10.0 cmH2O; BG PH 7.189 (7.350-7.450); BG PIP 20.0 cmH2O; BG PO2 75.8 mmHg (83.0-108.0); BG SAMPLE SITE ALINE; BG TOTAL HEMOGLOBIN 15.1 g/dL (13.5-17.5); BG VENT MODE VENT - P/C; BG VENT RATE 25.0 set
[2025-04-05] MEDS: CALCIUM GLUCONATE 1GM PREMIX 50ML IV SCH (21:28)
[2025-04-05] MEDS: METHYLPREDNISOLONE SOD SUCC 125MG/2ML (ACT-O-VIAL) IV SCH (23:42)
[2025-04-05] MEDS: CALCIUM CARBONATE 500MG TABLET CHEW PO SCH (23:42)
[2025-04-06] VITALS (115 sets, daily range): BP systolic 62–154; BP diastolic 18–122; PULSE 75–180; RESP 24–32; TEMP 36.1–37.4; O2SAT 87–100
[2025-04-06] MEDS ORDERED: METHYLPREDNISOLONE SOD SUCC 125MG/2ML (ACT-O-VIAL) IV PRN
[2025-04-06 00:32] LABS: BG BASE EXCESS -8.9 mmol/L (-2.0-3.0); BG CARBOXYHEMOGLOBIN 0.8 % (0.5-1.5); BG DEOXYHEMOGLOBIN 5.8 % (0.0-5.0); BG FRACTION INSPIRED OXYGEN 100; BG HCO3 ACT 20.3 mmol/L (21.0-28.0); BG METHEMOGLOBIN 0.1 % (0.5-1.5); BG OXYGEN SATURATION 94.1 % (94.0-98.0); BG OXYHEMOGLOBIN 93.3 % (94.0-98.0); BG PCO2 57.3 mmHg (35.0-48.0); BG PEEP (cmH2O) 10.0 cmH2O; BG PH 7.168 (7.350-7.450); BG PIP 20.0 cmH2O; BG PO2 86.0 mmHg (83.0-108.0); BG SAMPLE SITE ALINE; BG TOTAL HEMOGLOBIN 14.9 g/dL (13.5-17.5); BG VENT MODE VENT - P/C; BG VENT RATE 30.0 set
[2025-04-06 02:07] LABS: UREA NITROGEN BLOOD 48 mg/dL (9-23)
[2025-04-06 02:28] LABS: CREATININE 5.0 mg/dL (0.6-1.3); PHOSPHORUS 13.4 mg/dL (2.5-4.9)
[2025-04-06] MEDS: MAGNESIUM 1 G PREMIX 100 ML IV NR (03:03)
[2025-04-06] MEDS: CALCIUM GLUCONATE 1GM PREMIX 50 ML IV SCH (03:04)
[2025-04-06] MEDS: METOCLOPRAMIDE HCL 10MG/2ML VIAL IV PRN (04:17)
[2025-04-06 06:22] LABS: HEMATOCRIT. 42.8 % (42.0-52.0); HEMOGLOBIN. 13.7 g/dL (14.0-18.0); MEAN PLATELET VOLUME 11.9 fl (7.4-10.4); PLATELET 75 x1000/uL (130-400); RED BLOOD CELL COUNT 5.08 mill/uL (4.7-6.1); RED CELL DISTRIBUTION WIDTH 17.8 % (11.6-14.6)
[2025-04-06 06:45] LABS: CORTISOL 47.2 ucg/dL
[2025-04-06 06:49] LABS: UREA NITROGEN BLOOD 51 mg/dL (9-23)
[2025-04-06 06:51] LABS: BILIRUBIN TOTAL 1.0 mg/dL (0.1-1.0)
[2025-04-06 07:22] LABS: HEPATITIS A AB IGM NEGATIVE (Negative)
[2025-04-06 07:23] LABS: HEPATITIS B CORE AB IGM NEGATIVE (Negative)
[2025-04-06 07:24] LABS: HEPATITIS C AB NON REACTIVE (Neg) (Negative)
[2025-04-06 07:55] LABS: CREATININE 5.2 mg/dL (0.6-1.3)
[2025-04-06 07:57] LABS: PHOSPHORUS 12.8 mg/dL (2.5-4.9)
[2025-04-06] MEDS ORDERED: SODIUM BICARBONATE 8.4% 50MEQ/50ML VIAL IV ONE (08:30)
[2025-04-06] MEDS ORDERED: CEFEPIME 1GM IN DEXT 5% 50ML IV SCH (08:30)
[2025-04-06] MEDS ORDERED: CALCIUM GLUCONATE 100MG/ML 10ML VIAL IV ONE (08:30)
[2025-04-06 09:09] LABS: BG BASE EXCESS -3.8 mmol/L (-2.0-3.0); BG CARBOXYHEMOGLOBIN 1.1 % (0.5-1.5); BG DEOXYHEMOGLOBIN 0.9 % (0.0-5.0); BG FRACTION INSPIRED OXYGEN 100; BG HCO3 ACT 19.6 mmol/L (21.0-28.0); BG METHEMOGLOBIN 0.1 % (0.5-1.5); BG OXYGEN SATURATION 99.1 % (94.0-98.0); BG OXYHEMOGLOBIN 97.9 % (94.0-98.0); BG PCO2 31.4 mmHg (35.0-48.0); BG PEEP (cmH2O) 12.0 cmH2O; BG PH 7.413 (7.350-7.450); BG PIP 20.0 cmH2O; BG PO2 143.4 mmHg (83.0-108.0); BG SAMPLE SITE ALINE; BG TOTAL HEMOGLOBIN 15.5 g/dL (13.5-17.5); BG VENT MODE VENT - P/C; BG VENT RATE 30.0 set
[2025-04-06] MEDS: CALCIUM CHLORIDE 1GM/10ML SYR IV SCH (09:11)
[2025-04-06] MEDS: SODIUM BICARBONATE 8.4% 50MEQ/50ML SYR IV SCH ×2 (09:11→18:43)
[2025-04-06] MEDS: DEXTROSE 50% WATER 50ML SYRINGE IV SCH ×2 (09:12→18:43)
[2025-04-06] MEDS: INSULIN REGULAR (HUMULIN R) 1000UNITS/10ML VIAL IV SCH ×2 (09:12→18:45)
[2025-04-06] MEDS: CALCIUM ACETATE 667MG CAPSULE PO SCH (10:00)
[2025-04-06] MEDS: CEFEPIME 1GM PREMIX 50ML IV SCH (10:32)
[2025-04-06] MEDS: CALCIUM GLUCONATE 1GM PREMIX 50ML IV SCH (10:32)
[2025-04-06 10:55] LABS: BAND% 33.0 % (1.0-6.0); LYMPHOCYTES % MANUAL 5.0 % (20.0-50.0); METAMYELOCYTES % 1.0 % (0-0); MONOCYTES % MANUAL 3.0 % (2.0-8.0); NEUTROPHILS % MANUAL 58.0 % (45.0-75.0); NUCLEATED RED BLOOD CELLS 1 /100 WBC
[2025-04-06 10:56] LABS: PLATELET ESTIMATE DECREASED
[2025-04-06 12:07] LABS: INR 3.4
[2025-04-06] MEDS ORDERED: DOXYCYCLINE HYCLATE 100 MG/VIAL IV SCH (16:45)
[2025-04-06 17:47] LABS: CREATININE 4.8 mg/dL (0.6-1.3); UREA NITROGEN BLOOD 42.0 mg/dL (9-23)
[2025-04-06] MEDS: DOXYCYCLINE 100MG/100ML 100 ML IV SCH (17:56)
[2025-04-06] MEDS: METHYLPREDNISOLONE SOD SUCC 125MG/2ML (ACT-O-VIAL) IV SCH (17:57)
[2025-04-06] MEDS: CALCIUM GLUCONATE 100MG/ML 10ML VIAL IV ONE (18:50)
[2025-04-06 19:00] LABS: BILIRUBIN DIRECT 0.7 mg/dL (<=3.0); BILIRUBIN TOTAL 1.0 mg/dL (0.1-1.0); PROTEIN TOTAL 4.5 g/dL (6.0-8.3)
[2025-04-06 19:52] LABS: ASPARTATE AMINOTRANSFERASE > 6000 IU/L (<34)
[2025-04-06] MEDS ORDERED: PIPERACILLIN/TAZO 3.375G/50ML 50 ML IV SCH (21:00)
[2025-04-06] MEDS: DIGOXIN 500MCG/2ML AMP IV SCH (22:01)
[2025-04-06] MEDS ORDERED: DIGOXIN 500MCG/2ML AMP IV PRN (22:30)
[2025-04-06 23:51] LABS: UREA NITROGEN BLOOD 53 mg/dL (9-23)
[2025-04-06 23:59] LABS: CREATININE 5.1 mg/dL (0.6-1.3)
[2025-04-07] VITALS (108 sets, daily range): BP systolic 83–135; BP diastolic 47–102; PULSE 75–101; RESP 12–30; TEMP 35.9–36.7; O2SAT 95–100
[2025-04-07] LABS: PHOSPHORUS 10.1 mg/dL (2.5-4.9)
[2025-04-07] MEDS: MAGNESIUM 1 G PREMIX 100 ML IV NR (00:32)
[2025-04-07] MEDS ORDERED: DOXYCYCLINE HYCLATE 100 MG/VIAL IV SCH (01:00)
[2025-04-07] MEDS ORDERED: CALCIUM GLUCONATE 1GM PREMIX 50 ML IV SCH (01:00)
[2025-04-07] MEDS ORDERED: DIGOXIN 500MCG/2ML AMP IV PRN (01:30)
[2025-04-07] MEDS: CALCIUM GLUCONATE 1GM PREMIX 50 ML IV SCH ×2 (01:41→06:31)
[2025-04-07 06:04] LABS: HEMATOCRIT. 37.2 % (42.0-52.0); HEMOGLOBIN. 12.5 g/dL (14.0-18.0); RED BLOOD CELL COUNT 4.59 mill/uL (4.7-6.1); RED CELL DISTRIBUTION WIDTH 17.1 % (11.6-14.6)
[2025-04-07 06:10] LABS: UREA NITROGEN BLOOD 57 mg/dL (9-23)
[2025-04-07 06:18] LABS: CREATININE 5.5 mg/dL (0.6-1.3)
[2025-04-07] MEDS ORDERED: CALCIUM GLUCONATE 1GM PREMIX 50 ML IV ONE (07:45)
[2025-04-07 09:29] LABS: BAND% 36.0 % (1.0-6.0); LYMPHOCYTES % MANUAL 3.0 % (20.0-50.0); MONOCYTES % MANUAL 2.0 % (2.0-8.0); NEUTROPHILS % MANUAL 59.0 % (45.0-75.0); PLATELET ESTIMATE DECREASED
[2025-04-07 09:31] LABS: PLATELET 55 x1000/uL (130-400)
[2025-04-07 09:44] LABS: BG BASE EXCESS 5.4 mmol/L (-2.0-3.0); BG CARBOXYHEMOGLOBIN 0.6 % (0.5-1.5); BG DEOXYHEMOGLOBIN 2.7 % (0.0-5.0); BG FRACTION INSPIRED OXYGEN 60; BG HCO3 ACT 25.4 mmol/L (21.0-28.0); BG METHEMOGLOBIN 0.3 % (0.5-1.5); BG OXYGEN SATURATION 97.3 % (94.0-98.0); BG OXYHEMOGLOBIN 96.4 % (94.0-98.0); BG PCO2 24.9 mmHg (35.0-48.0); BG PEEP (cmH2O) 12.0 cmH2O; BG PH 7.627 (7.350-7.450); BG PO2 89.3 mmHg (83.0-108.0); BG SAMPLE SITE ALINE; BG TOTAL HEMOGLOBIN 12.8 g/dL (13.5-17.5); BG VENT MODE VENT - AC/PC; BG VENT RATE 30.0 set
[2025-04-07 15:52] LABS: BG BASE EXCESS 3.6 mmol/L (-2.0-3.0); BG CARBOXYHEMOGLOBIN 0.3 % (0.5-1.5); BG DEOXYHEMOGLOBIN 0.4 % (0.0-5.0); BG FRACTION INSPIRED OXYGEN 100; BG HCO3 ACT 25.7 mmol/L (21.0-28.0); BG METHEMOGLOBIN 0.3 % (0.5-1.5); BG OXYGEN SATURATION 99.6 % (94.0-98.0); BG OXYHEMOGLOBIN 99.0 % (94.0-98.0); BG PCO2 31.0 mmHg (35.0-48.0); BG PEEP (cmH2O) 12.0 cmH2O; BG PH 7.536 (7.350-7.450); BG PO2 213.6 mmHg (83.0-108.0); BG SAMPLE SITE ALINE; BG TIDAL VOLUME(mL) 500.0 mL; BG TOTAL HEMOGLOBIN 13.0 g/dL (13.5-17.5); BG VENT MODE VENT - AC/PRVC; BG VENT RATE 20.0 set
[2025-04-08] VITALS (106 sets, daily range): BP systolic 78–150; BP diastolic 55–107; PULSE 69–96; RESP 16–22; TEMP 36.5–37; O2SAT 95–100
[2025-04-08 05:36] LABS: HEMATOCRIT. 33.5 % (42.0-52.0); HEMOGLOBIN. 11.1 g/dL (14.0-18.0); MEAN PLATELET VOLUME 11.6 fl (7.4-10.4); PLATELET 51 x1000/uL (130-400); RED BLOOD CELL COUNT 4.14 mill/uL (4.7-6.1); RED CELL DISTRIBUTION WIDTH 16.9 % (11.6-14.6)
[2025-04-08 05:58] LABS: UREA NITROGEN BLOOD 63 mg/dL (9-23)
[2025-04-08 06:01] LABS: CREATININE 6.3 mg/dL (0.6-1.3)
[2025-04-08 06:03] LABS: PHOSPHORUS 8.8 mg/dL (2.5-4.9)
[2025-04-08] MEDS ORDERED: CALCIUM GLUCONATE 1,000 MG in DEXT 5% WATER 90 ML IV ONE (07:30)
[2025-04-08 08:03] LABS: BAND% 27.0 % (1.0-6.0); LYMPHOCYTES % MANUAL 1.0 % (20.0-50.0); MONOCYTES % MANUAL 2.0 % (2.0-8.0); NEUTROPHILS % MANUAL 70.0 % (45.0-75.0)
[2025-04-08 08:04] LABS: PLATELET ESTIMATE DECREASED
[2025-04-08 08:43] LABS: BG BASE EXCESS 6.1 mmol/L (-2.0-3.0); BG CARBOXYHEMOGLOBIN 0.6 % (0.5-1.5); BG DEOXYHEMOGLOBIN 2.0 % (0.0-5.0); BG FRACTION INSPIRED OXYGEN 70; BG HCO3 ACT 27.8 mmol/L (21.0-28.0); BG METHEMOGLOBIN 0.1 % (0.5-1.5); BG OXYGEN SATURATION 98.0 % (94.0-98.0); BG OXYHEMOGLOBIN 97.3 % (94.0-98.0); BG PCO2 30.6 mmHg (35.0-48.0); BG PEEP (cmH2O) 12.0 cmH2O; BG PH 7.576 (7.350-7.450); BG PO2 105.5 mmHg (83.0-108.0); BG SAMPLE SITE ALINE; BG TIDAL VOLUME(mL) 500.0 mL; BG TOTAL HEMOGLOBIN 12.1 g/dL (13.5-17.5); BG VENT MODE VENT - AC/PRVC; BG VENT RATE 20.0 set
[2025-04-08] MEDS: CALCIUM GLUCONATE 1GM PREMIX 50 ML IV SCH (08:55)
[2025-04-08] MEDS: DEXT 5%/0.45% NACL 1000ML 1,000 ML IV SCH (11:44)
[2025-04-08 11:58] LABS: BG BASE EXCESS 10.3 mmol/L (-2.0-3.0); BG CARBOXYHEMOGLOBIN 0.7 % (0.5-1.5); BG DEOXYHEMOGLOBIN 1.3 % (0.0-5.0); BG FRACTION INSPIRED OXYGEN 60; BG HCO3 ACT 32.7 mmol/L (21.0-28.0); BG METHEMOGLOBIN 0.0 % (0.5-1.5); BG OXYGEN SATURATION 98.7 % (94.0-98.0); BG OXYHEMOGLOBIN 98.0 % (94.0-98.0); BG PCO2 35.8 mmHg (35.0-48.0); BG PEEP (cmH2O) 12.0 cmH2O; BG PH 7.579 (7.350-7.450); BG PO2 125.2 mmHg (83.0-108.0); BG SAMPLE SITE ALINE; BG TIDAL VOLUME(mL) 500.0 mL; BG TOTAL HEMOGLOBIN 12.1 g/dL (13.5-17.5); BG VENT MODE VENT - AC/PRVC; BG VENT RATE 20.0 set
[2025-04-08 17:45] LABS: BG BASE EXCESS 5.4 mmol/L (-2.0-3.0); BG CARBOXYHEMOGLOBIN 1.0 % (0.5-1.5); BG DEOXYHEMOGLOBIN 1.7 % (0.0-5.0); BG FRACTION INSPIRED OXYGEN 50; BG HCO3 ACT 28.4 mmol/L (21.0-28.0); BG METHEMOGLOBIN 0.1 % (0.5-1.5); BG OXYGEN SATURATION 98.3 % (94.0-98.0); BG OXYHEMOGLOBIN 97.2 % (94.0-98.0); BG PCO2 36.2 mmHg (35.0-48.0); BG PEEP (cmH2O) 10.0 cmH2O; BG PH 7.513 (7.350-7.450); BG PO2 111.2 mmHg (83.0-108.0); BG SAMPLE SITE RIGHT RADIAL; BG TOTAL HEMOGLOBIN 13.0 g/dL (13.5-17.5); BG VENT MODE VENT - P/C; BG VENT RATE 16.0 set
[2025-04-08] MEDS: VANCOMYCIN 500MG/100ML IV SCH (21:16)
[2025-04-09] VITALS (109 sets, daily range): BP systolic 70–149; BP diastolic 53–114; PULSE 68–110; RESP 16–23; TEMP 36.114–37; O2SAT 85–100
[2025-04-09 04:54] LABS: HEMATOCRIT. 36.2 % (42.0-52.0); HEMOGLOBIN. 11.6 g/dL (14.0-18.0); MEAN PLATELET VOLUME 11.9 fl (7.4-10.4); PLATELET 54 x1000/uL (130-400); RED BLOOD CELL COUNT 4.36 mill/uL (4.7-6.1); RED CELL DISTRIBUTION WIDTH 16.7 % (11.6-14.6)
[2025-04-09 05:09] LABS: CA 19-9 < 2 U/mL (0-35); CANCER ANTIGEN 125 29.3 U/mL (Not Estab.)
[2025-04-09 05:11] LABS: UREA NITROGEN BLOOD 59 mg/dL (9-23)
[2025-04-09 05:13] LABS: PHOSPHORUS 7.4 mg/dL (2.5-4.9)
[2025-04-09 05:19] LABS: CREATININE 5.5 mg/dL (0.6-1.3)
[2025-04-09 08:35] LABS: BAND% 22.0 % (1.0-6.0); LYMPHOCYTES % MANUAL 1.0 % (20.0-50.0); MONOCYTES % MANUAL 1.0 % (2.0-8.0); NEUTROPHILS % MANUAL 76.0 % (45.0-75.0); NUCLEATED RED BLOOD CELLS 1 /100 WBC
[2025-04-09 08:36] LABS: PLATELET ESTIMATE DECREASED
[2025-04-09] MEDS: METHYLPREDNISOLONE SOD SUCC 40MG/ML (ACT-O-VIAL) IV SCH (09:23)
[2025-04-09 09:58] LABS: BG BASE EXCESS 4.7 mmol/L (-2.0-3.0); BG CARBOXYHEMOGLOBIN 0.5 % (0.5-1.5); BG DEOXYHEMOGLOBIN 9.9 % (0.0-5.0); BG FRACTION INSPIRED OXYGEN 40; BG HCO3 ACT 27.1 mmol/L (21.0-28.0); BG METHEMOGLOBIN 0.3 % (0.5-1.5); BG OXYGEN SATURATION 90.0 % (94.0-98.0); BG OXYHEMOGLOBIN 89.3 % (94.0-98.0); BG PCO2 33.0 mmHg (35.0-48.0); BG PEEP (cmH2O) 10.0 cmH2O; BG PH 7.532 (7.350-7.450); BG PO2 60.6 mmHg (83.0-108.0); BG SAMPLE SITE LEFT RADIAL; BG TOTAL HEMOGLOBIN 12.6 g/dL (13.5-17.5); BG VENT MODE VENT - P/C; BG VENT RATE 16.0 set
[2025-04-09] MEDS: MAGNESIUM 2 G PREMIX 50 ML IV SCH (10:00)
[2025-04-10] VITALS (101 sets, daily range): BP systolic 82–178; BP diastolic 52–129; PULSE 79–131; RESP 12–27; TEMP 36.00288–36.6696; O2SAT 97–100
[2025-04-10 06:09] LABS: HEMATOCRIT. 34.2 % (42.0-52.0); HEMOGLOBIN. 11.2 g/dL (14.0-18.0); MEAN PLATELET VOLUME 10.4 fl (7.4-10.4); RED BLOOD CELL COUNT 4.18 mill/uL (4.7-6.1); RED CELL DISTRIBUTION WIDTH 16.7 % (11.6-14.6)
[2025-04-10 06:34] LABS: PLATELET 40 x1000/uL (130-400)
[2025-04-10 06:41] LABS: UREA NITROGEN BLOOD 56 mg/dL (9-23)
[2025-04-10 06:43] LABS: PHOSPHORUS 7.0 mg/dL (2.5-4.9)
[2025-04-10 06:46] LABS: CREATININE 5.2 mg/dL (0.6-1.3)
[2025-04-10 07:33] LABS: BAND% 6.0 % (1.0-6.0); MONOCYTES % MANUAL 6.0 % (2.0-8.0); NEUTROPHILS % MANUAL 88.0 % (45.0-75.0); NUCLEATED RED BLOOD CELLS 1 /100 WBC
[2025-04-10 07:34] LABS: PLATELET ESTIMATE MARKEDLY DECREASED
[2025-04-10 08:56] LABS: BG BASE EXCESS 2.9 mmol/L (-2.0-3.0); BG CARBOXYHEMOGLOBIN 0.3 % (0.5-1.5); BG DEOXYHEMOGLOBIN 1.5 % (0.0-5.0); BG FRACTION INSPIRED OXYGEN 60; BG HCO3 ACT 25.4 mmol/L (21.0-28.0); BG METHEMOGLOBIN 0.3 % (0.5-1.5); BG OXYGEN SATURATION 98.5 % (94.0-98.0); BG OXYHEMOGLOBIN 97.9 % (94.0-98.0); BG PCO2 32.4 mmHg (35.0-48.0); BG PEEP (cmH2O) 10.0 cmH2O; BG PH 7.513 (7.350-7.450); BG PIP 14.0 cmH2O; BG PO2 118.6 mmHg (83.0-108.0); BG SAMPLE SITE LEFT RADIAL; BG TOTAL HEMOGLOBIN 11.9 g/dL (13.5-17.5); BG VENT MODE VENT - P/C; BG VENT RATE 12.0 set
[2025-04-10] MEDS: CLONIDINE 0.1MG TABLET PO PRN (15:50)
[2025-04-10] MEDS: LABETALOL 5MG/ML 4ML INJ IV SCH (18:27)
[2025-04-10] MEDS: DEXMEDETOMIDINE 400 MCG/100 ML 100 ML IV PRN (20:18)
[2025-04-11] VITALS (100 sets, daily range): BP systolic 68–167; BP diastolic 45–125; PULSE 70–107; RESP 20–34; TEMP 36–36.7; O2SAT 94–100
[2025-04-11 07:17] LABS: CREATININE 4.7 mg/dL (0.6-1.3); UREA NITROGEN BLOOD 54 mg/dL (9-23)
[2025-04-11 07:18] LABS: HEMATOCRIT. 33.3 % (42.0-52.0); HEMOGLOBIN. 10.8 g/dL (14.0-18.0); MEAN PLATELET VOLUME 10.8 fl (7.4-10.4); RED BLOOD CELL COUNT 4.03 mill/uL (4.7-6.1); RED CELL DISTRIBUTION WIDTH 16.8 % (11.6-14.6)
[2025-04-11 07:19] LABS: PHOSPHORUS 6.4 mg/dL (2.5-4.9)
[2025-04-11 08:04] LABS: PLATELET 45 x1000/uL (130-400)
[2025-04-11] MEDS: CARVEDILOL 3.125 MG TABLET NG SCH (08:31)
[2025-04-11 09:14] LABS: BG BASE EXCESS 0.1 mmol/L (-2.0-3.0); BG CARBOXYHEMOGLOBIN 1.7 % (0.5-1.5); BG DEOXYHEMOGLOBIN 7.9 % (0.0-5.0); BG FRACTION INSPIRED OXYGEN 40; BG HCO3 ACT 22.6 mmol/L (21.0-28.0); BG METHEMOGLOBIN 0.3 % (0.5-1.5); BG OXYGEN SATURATION 91.9 % (94.0-98.0); BG OXYHEMOGLOBIN 90.1 % (94.0-98.0); BG PCO2 30.2 mmHg (35.0-48.0); BG PEEP (cmH2O) 5.0 cmH2O; BG PH 7.492 (7.350-7.450); BG PO2 63.5 mmHg (83.0-108.0); BG SAMPLE SITE RIGHT RADIAL; BG TIDAL VOLUME(mL) 450.0 mL; BG TOTAL HEMOGLOBIN 12.1 g/dL (13.5-17.5); BG TOTAL RESPIRATORY RATE 29 b/min; BG VENT MODE VENT - SIMV; BG VENT RATE 8.0 set
[2025-04-11] MEDS: IPRATROPIUM/ALBUTEROL 0.5-3(2.5)MG/3ML NEB HHN PRN (10:21)
[2025-04-11 13:11] LABS: ALPHA FETOPROTEIN TUMOR MARKER 18.3 ng/mL (0.0-8.4); CANCER ANTIGEN 125 53.6 U/mL (Not Estab.); CARCINOEMBRYONIC AG - SEND OUT 19.5 ng/mL (0.0-4.7)
[2025-04-11 17:48] LABS: BAND% 6.0 % (1.0-6.0); LYMPHOCYTES % MANUAL 3.0 % (20.0-50.0); MONOCYTES % MANUAL 10.0 % (2.0-8.0); NEUTROPHILS % MANUAL 81.0 % (45.0-75.0); PLATELET ESTIMATE MARKEDLY DECREASED
[2025-04-12] VITALS (106 sets, daily range): BP systolic 59–194; BP diastolic 42–124; PULSE 67–124; RESP 11–32; TEMP 35.2806–37; O2SAT 57–100
[2025-04-12 06:46] LABS: HEMATOCRIT. 34.4 % (42.0-52.0); HEMOGLOBIN. 11.1 g/dL (14.0-18.0); MEAN PLATELET VOLUME 11.3 fl (7.4-10.4); PLATELET 67 x1000/uL (130-400); RED BLOOD CELL COUNT 4.10 mill/uL (4.7-6.1); RED CELL DISTRIBUTION WIDTH 16.9 % (11.6-14.6)
[2025-04-12 07:09] LABS: UREA NITROGEN BLOOD 65.0 mg/dL (9-23)
[2025-04-12 07:33] LABS: CREATININE 5.6 mg/dL (0.6-1.3)
[2025-04-12] MEDS: LISINOPRIL 5MG TABLET NG SCH (09:00)
[2025-04-12] MEDS: CARVEDILOL 6.25 MG TABLET NG SCH (09:00)
[2025-04-12 10:17] LABS: BAND% 8.0 % (1.0-6.0); LYMPHOCYTES % MANUAL 5.0 % (20.0-50.0); MONOCYTES % MANUAL 4.0 % (2.0-8.0); NEUTROPHILS % MANUAL 83.0 % (45.0-75.0); PLATELET ESTIMATE DECREASED
[2025-04-12 16:46] LABS: BG BASE EXCESS -0.3 mmol/L (-2.0-3.0); BG CARBOXYHEMOGLOBIN 1.8 % (0.5-1.5); BG DEOXYHEMOGLOBIN 15.7 % (0.0-5.0); BG FRACTION INSPIRED OXYGEN 40; BG HCO3 ACT 22.4 mmol/L (21.0-28.0); BG METHEMOGLOBIN 0.3 % (0.5-1.5); BG OXYGEN SATURATION 84.0 % (94.0-98.0); BG OXYHEMOGLOBIN 82.2 % (94.0-98.0); BG PCO2 30.9 mmHg (35.0-48.0); BG PEEP (cmH2O) 5.0 cmH2O; BG PH 7.478 (7.350-7.450); BG PO2 51.7 mmHg (83.0-108.0); BG SAMPLE SITE RIGHT RADIAL; BG TIDAL VOLUME(mL) 450.0 mL; BG TOTAL HEMOGLOBIN 12.8 g/dL (13.5-17.5); BG VENT MODE VENT - SIMV; BG VENT RATE 8.0 set
[2025-04-13] VITALS (88 sets, daily range): BP systolic 71–203; BP diastolic 42–107; PULSE 56–94; RESP 6–27; TEMP 35.9–36.6; O2SAT 96–100
[2025-04-13 06:04] LABS: UREA NITROGEN BLOOD 55 mg/dL (9-23)
[2025-04-13 06:06] LABS: PHOSPHORUS 6.9 mg/dL (2.5-4.9)
[2025-04-13 06:15] LABS: CREATININE 5.1 mg/dL (0.6-1.3)
[2025-04-13 06:29] LABS: HEMATOCRIT. 32.2 % (42.0-52.0); HEMOGLOBIN. 10.0 g/dL (14.0-18.0); MEAN PLATELET VOLUME 11.5 fl (7.4-10.4); PLATELET 59 x1000/uL (130-400); RED BLOOD CELL COUNT 3.78 mill/uL (4.7-6.1); RED CELL DISTRIBUTION WIDTH 16.9 % (11.6-14.6)
[2025-04-13 08:37] LABS: BG BASE EXCESS -0.4 mmol/L (-2.0-3.0); BG CARBOXYHEMOGLOBIN 1.2 % (0.5-1.5); BG DEOXYHEMOGLOBIN 8.1 % (0.0-5.0); BG FRACTION INSPIRED OXYGEN 60; BG HCO3 ACT 22.8 mmol/L (21.0-28.0); BG METHEMOGLOBIN 0.3 % (0.5-1.5); BG OXYGEN SATURATION 91.8 % (94.0-98.0); BG OXYHEMOGLOBIN 90.4 % (94.0-98.0); BG PCO2 31.5 mmHg (35.0-48.0); BG PEEP (cmH2O) 7.0 cmH2O; BG PH 7.477 (7.350-7.450); BG PO2 66.5 mmHg (83.0-108.0); BG SAMPLE SITE RIGHT RADIAL; BG TIDAL VOLUME(mL) 450.0 mL; BG TOTAL HEMOGLOBIN 9.2 g/dL (13.5-17.5); BG VENT MODE VENT - SIMV; BG VENT RATE 12.0 set
[2025-04-13] MEDS: LISINOPRIL 2.5MG TABLET NG SCH (08:40)
[2025-04-13 17:49] LABS: EOSINOPHILS % MANUAL 1.0 % (0.0-5.0); LYMPHOCYTES % MANUAL 5.0 % (20.0-50.0); MONOCYTES % MANUAL 4.0 % (2.0-8.0); NEUTROPHILS % MANUAL 90.0 % (45.0-75.0); PLATELET ESTIMATE DECREASED
[2025-04-14] VITALS (104 sets, daily range): BP systolic 76–195; BP diastolic 49–174; PULSE 55–141; RESP 17–27; TEMP 36.114–37.2; O2SAT 96–100
[2025-04-14 05:34] LABS: HEMATOCRIT. 24.3 % (42.0-52.0); HEMOGLOBIN. 7.8 g/dL (14.0-18.0); MEAN PLATELET VOLUME 11.6 fl (7.4-10.4); PLATELET 60 x1000/uL (130-400); RED BLOOD CELL COUNT 2.91 mill/uL (4.7-6.1); RED CELL DISTRIBUTION WIDTH 17.0 % (11.6-14.6)
[2025-04-14 06:20] LABS: UREA NITROGEN BLOOD 67 mg/dL (9-23)
[2025-04-14 06:23] LABS: PHOSPHORUS 6.8 mg/dL (2.5-4.9)
[2025-04-14 07:55] LABS: CREATININE 5.2 mg/dL (0.6-1.3)
[2025-04-14 08:40] LABS: BAND% 6.0 % (1.0-6.0); LYMPHOCYTES % MANUAL 1.0 % (20.0-50.0); MONOCYTES % MANUAL 3.0 % (2.0-8.0); NEUTROPHILS % MANUAL 90.0 % (45.0-75.0); PLATELET ESTIMATE DECREASED
[2025-04-14 08:56] LABS: BG BASE EXCESS -4.0 mmol/L (-2.0-3.0); BG CARBOXYHEMOGLOBIN 2.2 % (0.5-1.5); BG DEOXYHEMOGLOBIN 1.7 % (0.0-5.0); BG FRACTION INSPIRED OXYGEN 60; BG HCO3 ACT 19.5 mmol/L (21.0-28.0); BG METHEMOGLOBIN 0.1 % (0.5-1.5); BG OXYGEN SATURATION 98.3 % (94.0-98.0); BG OXYHEMOGLOBIN 96.0 % (94.0-98.0); BG PCO2 29.5 mmHg (35.0-48.0); BG PEEP (cmH2O) 7.0 cmH2O; BG PH 7.437 (7.350-7.450); BG PO2 115.9 mmHg (83.0-108.0); BG SAMPLE SITE RIGHT RADIAL; BG TIDAL VOLUME(mL) 450.0 mL; BG TOTAL HEMOGLOBIN 8.8 g/dL (13.5-17.5); BG VENT MODE VENT - AC; BG VENT RATE 12.0 set
[2025-04-14] MEDS: MIDODRINE HCL 5MG TABLET NG SCH (10:54)
[2025-04-14] MEDS: POTASSIUM CHLORIDE 20MEQ TABLET SR PO SCH (10:54)
[2025-04-14 13:30] LABS: BG BASE EXCESS -1.7 mmol/L (-2.0-3.0); BG CARBOXYHEMOGLOBIN 0.6 % (0.5-1.5); BG DEOXYHEMOGLOBIN 2.2 % (0.0-5.0); BG FRACTION INSPIRED OXYGEN 60; BG HCO3 ACT 21.1 mmol/L (21.0-28.0); BG METHEMOGLOBIN 0.3 % (0.5-1.5); BG OXYGEN SATURATION 97.8 % (94.0-98.0); BG OXYHEMOGLOBIN 96.9 % (94.0-98.0); BG PCO2 29.1 mmHg (35.0-48.0); BG PEEP (cmH2O) 5.0 cmH2O; BG PH 7.478 (7.350-7.450); BG PO2 106.0 mmHg (83.0-108.0); BG SAMPLE SITE RIGHT RADIAL; BG TIDAL VOLUME(mL) 450.0 mL; BG TOTAL HEMOGLOBIN 10.2 g/dL (13.5-17.5); BG VENT MODE VENT - SIMV; BG VENT RATE 8.0 set
[2025-04-14] MEDS: METOCLOPRAMIDE HCL 10MG/2ML VIAL IV SCH (14:40)
[2025-04-14] MEDS: KCL 20MEQ/100ML PREMIX 100 ML IV NR (15:01)
[2025-04-14 16:31] LABS: BG BASE EXCESS -2.3 mmol/L (-2.0-3.0); BG CARBOXYHEMOGLOBIN 1.1 % (0.5-1.5); BG DEOXYHEMOGLOBIN 4.1 % (0.0-5.0); BG FRACTION INSPIRED OXYGEN 40; BG HCO3 ACT 19.9 mmol/L (21.0-28.0); BG METHEMOGLOBIN 0.3 % (0.5-1.5); BG OXYGEN SATURATION 95.8 % (94.0-98.0); BG OXYHEMOGLOBIN 94.5 % (94.0-98.0); BG PCO2 26.0 mmHg (35.0-48.0); BG PEEP (cmH2O) 5.0 cmH2O; BG PH 7.501 (7.350-7.450); BG PO2 80.2 mmHg (83.0-108.0); BG SAMPLE SITE LEFT RADIAL; BG TIDAL VOLUME(mL) 450.0 mL; BG TOTAL HEMOGLOBIN 10.5 g/dL (13.5-17.5); BG VENT MODE VENT - SIMV; BG VENT RATE 8.0 set
[2025-04-15] VITALS (107 sets, daily range): BP systolic 64–163; BP diastolic 40–93; PULSE 73–115; RESP 18–30; TEMP 36.114–37.1; O2SAT 64–100
[2025-04-15 05:25] LABS: UREA NITROGEN BLOOD 64 mg/dL (9-23)
[2025-04-15 05:26] LABS: PHOSPHORUS 6.7 mg/dL (2.5-4.9)
[2025-04-15 05:30] LABS: CREATININE 5.2 mg/dL (0.6-1.3)
[2025-04-15 05:32] LABS: HEMATOCRIT. 25.9 % (42.0-52.0); HEMOGLOBIN. 8.4 g/dL (14.0-18.0); MEAN PLATELET VOLUME 11.4 fl (7.4-10.4); PLATELET 79 x1000/uL (130-400); RED BLOOD CELL COUNT 3.12 mill/uL (4.7-6.1); RED CELL DISTRIBUTION WIDTH 16.9 % (11.6-14.6)
[2025-04-15 08:51] LABS: BG BASE EXCESS -3.3 mmol/L (-2.0-3.0); BG CARBOXYHEMOGLOBIN 1.2 % (0.5-1.5); BG DEOXYHEMOGLOBIN 4.3 % (0.0-5.0); BG FRACTION INSPIRED OXYGEN 40; BG HCO3 ACT 20.0 mmol/L (21.0-28.0); BG METHEMOGLOBIN 0.3 % (0.5-1.5); BG OXYGEN SATURATION 95.6 % (94.0-98.0); BG OXYHEMOGLOBIN 94.2 % (94.0-98.0); BG PCO2 29.3 mmHg (35.0-48.0); BG PEEP (cmH2O) 5.0 cmH2O; BG PH 7.451 (7.350-7.450); BG PO2 84.6 mmHg (83.0-108.0); BG SAMPLE SITE RIGHT RADIAL; BG TIDAL VOLUME(mL) 450.0 mL; BG TOTAL HEMOGLOBIN 9.2 g/dL (13.5-17.5); BG VENT MODE VENT - AC; BG VENT RATE 16.0 set
[2025-04-15] MEDS: MIDODRINE HCL 5MG TABLET NG SCH (09:24)
[2025-04-15 16:31] LABS: EOSINOPHILS % MANUAL 1.0 % (0.0-5.0); LYMPHOCYTES % MANUAL 2.0 % (20.0-50.0); MONOCYTES % MANUAL 4.0 % (2.0-8.0); NEUTROPHILS % MANUAL 93.0 % (45.0-75.0); PLATELET ESTIMATE DECREASED
[2025-04-15] MEDS: DEXTROSE 50% WATER 50ML SYRINGE IV PRN (17:16)
[2025-04-15 17:37] LABS: BG BASE EXCESS -0.3 mmol/L (-2.0-3.0); BG CARBOXYHEMOGLOBIN 1.7 % (0.5-1.5); BG DEOXYHEMOGLOBIN 5.9 % (0.0-5.0); BG FRACTION INSPIRED OXYGEN 40; BG HCO3 ACT 22.2 mmol/L (21.0-28.0); BG METHEMOGLOBIN 0.3 % (0.5-1.5); BG OXYGEN SATURATION 94.0 % (94.0-98.0); BG OXYHEMOGLOBIN 92.1 % (94.0-98.0); BG PCO2 28.1 mmHg (35.0-48.0); BG PEEP (cmH2O) 5.0 cmH2O; BG PH 7.515 (7.350-7.450); BG PO2 72.9 mmHg (83.0-108.0); BG SAMPLE SITE RIGHT RADIAL; BG TIDAL VOLUME(mL) 450.0 mL; BG TOTAL HEMOGLOBIN 8.3 g/dL (13.5-17.5); BG TOTAL RESPIRATORY RATE 24 b/min; BG VENT MODE VENT - AC; BG VENT RATE 16.0 set
[2025-04-16] VITALS (107 sets, daily range): BP systolic 77–165; BP diastolic 42–112; PULSE 70–125; RESP 12–27; TEMP 36.44736–37.1; O2SAT 0–100
[2025-04-16] MEDS: INSULIN LISPRO 100 UNITS/ML SUBCUT SCH
[2025-04-16] MEDS: BLOOD SUGAR DIAGNOSTIC STRIP TEST SCH
[2025-04-16] MEDS: DEXMEDETOMIDINE 400 MCG/100 ML 100 ML IV PRN (00:37)
[2025-04-16 07:41] LABS: CREATININE 4.9 mg/dL (0.6-1.3); UREA NITROGEN BLOOD 51 mg/dL (9-23)
[2025-04-16 07:43] LABS: PHOSPHORUS 5.8 mg/dL (2.5-4.9)
[2025-04-16 09:07] LABS: BG BASE EXCESS 0.0 mmol/L (-2.0-3.0); BG CARBOXYHEMOGLOBIN 1.3 % (0.5-1.5); BG DEOXYHEMOGLOBIN 2.3 % (0.0-5.0); BG FRACTION INSPIRED OXYGEN 40; BG HCO3 ACT 23.1 mmol/L (21.0-28.0); BG METHEMOGLOBIN 0.3 % (0.5-1.5); BG OXYGEN SATURATION 97.7 % (94.0-98.0); BG OXYHEMOGLOBIN 96.1 % (94.0-98.0); BG PCO2 31.4 mmHg (35.0-48.0); BG PEEP (cmH2O) 5.0 cmH2O; BG PH 7.484 (7.350-7.450); BG PO2 101.7 mmHg (83.0-108.0); BG SAMPLE SITE RIGHT RADIAL; BG TIDAL VOLUME(mL) 450.0 mL; BG TOTAL HEMOGLOBIN 8.9 g/dL (13.5-17.5); BG VENT MODE VENT - SIMV; BG VENT RATE 12.0 set
[2025-04-16] MEDS: ALBUMIN HUMAN 12.5G/250ML (5%) IV SCH (09:22)
[2025-04-16] MEDS: MORPHINE SULFATE 2 MG/ML INJ (NOT FOR IM USE) IV PRN (12:29)
[2025-04-16] MEDS: MORPHINE SULFATE 2 MG/ML INJ (NOT FOR IM USE) IV SCH (13:57)
[2025-04-16] MEDS ORDERED: NALOXONE HCL 0.4MG/ML VIAL IV PRN (15:00)
[2025-04-16 15:53] LABS: BG BASE EXCESS 1.3 mmol/L (-2.0-3.0); BG CARBOXYHEMOGLOBIN 1.3 % (0.5-1.5); BG DEOXYHEMOGLOBIN 4.2 % (0.0-5.0); BG FRACTION INSPIRED OXYGEN 10; BG HCO3 ACT 24.2 mmol/L (21.0-28.0); BG METHEMOGLOBIN 0.1 % (0.5-1.5); BG OXYGEN SATURATION 95.7 % (94.0-98.0); BG OXYHEMOGLOBIN 94.4 % (94.0-98.0); BG PCO2 31.2 mmHg (35.0-48.0); BG PEEP (cmH2O) 5.0 cmH2O; BG PH 7.508 (7.350-7.450); BG PO2 79.0 mmHg (83.0-108.0); BG SAMPLE SITE RIGHT RADIAL; BG TOTAL HEMOGLOBIN 8.1 g/dL (13.5-17.5); BG VENT MODE VENT - CPAP
[2025-04-17] VITALS (128 sets, daily range): BP systolic 78–167; BP diastolic 47–104; PULSE 70–114; RESP 0–21; TEMP 36.6–37; O2SAT 94–100
[2025-04-17 07:12] LABS: CREATININE 4.5 mg/dL (0.6-1.3); UREA NITROGEN BLOOD 42 mg/dL (9-23)
[2025-04-17 07:14] LABS: PHOSPHORUS 5.0 mg/dL (2.5-4.9)
[2025-04-17 07:29] LABS: MEAN PLATELET VOLUME 11.0 fl (7.4-10.4); PLATELET 94 x1000/uL (130-400); RED BLOOD CELL COUNT 2.41 mill/uL (4.7-6.1); RED CELL DISTRIBUTION WIDTH 17.6 % (11.6-14.6)
[2025-04-17 07:37] LABS: HEMOGLOBIN. 6.7 g/dL (14.0-18.0)
[2025-04-17 07:38] LABS: HEMATOCRIT. 20.5 % (42.0-52.0)
[2025-04-17 09:54] LABS: BG BASE EXCESS 0.1 mmol/L (-2.0-3.0); BG CARBOXYHEMOGLOBIN 1.7 % (0.5-1.5); BG DEOXYHEMOGLOBIN 1.9 % (0.0-5.0); BG FRACTION INSPIRED OXYGEN 40; BG HCO3 ACT 23.9 mmol/L (21.0-28.0); BG METHEMOGLOBIN 0.1 % (0.5-1.5); BG OXYGEN SATURATION 98.1 % (94.0-98.0); BG OXYHEMOGLOBIN 96.3 % (94.0-98.0); BG PCO2 34.5 mmHg (35.0-48.0); BG PEEP (cmH2O) 5.0 cmH2O; BG PH 7.458 (7.350-7.450); BG PO2 107.9 mmHg (83.0-108.0); BG SAMPLE SITE RIGHT RADIAL; BG TIDAL VOLUME(mL) 450.0 mL; BG TOTAL HEMOGLOBIN 6.9 g/dL (13.5-17.5); BG VENT MODE VENT - AC; BG VENT RATE 12.0 set
[2025-04-17 11:14] LABS: BAND% 10.0 % (1.0-6.0); EOSINOPHILS % MANUAL 1.0 % (0.0-5.0); LYMPHOCYTES % MANUAL 1.0 % (20.0-50.0); MONOCYTES % MANUAL 9.0 % (2.0-8.0); NEUTROPHILS % MANUAL 79.0 % (45.0-75.0); PLATELET ESTIMATE DECREASED
[2025-04-17] MEDS: ACETAMINOPHEN 650MG/20.3ML UDC NG PRN (12:47)
[2025-04-17] MEDS: MAGNESIUM CITRATE 300ML SOLUTION GT NR (13:30)
[2025-04-17] MEDS ORDERED: MIDO5TAB4 PO (17:02)
[2025-04-17] MEDS ORDERED: CARV3.1242 PO (17:02)
[2025-04-17 20:37] LABS: HEMATOCRIT. 26.4 % (42.0-52.0); HEMOGLOBIN. 8.4 g/dL (14.0-18.0); MEAN PLATELET VOLUME 10.6 fl (7.4-10.4); PLATELET 96 x1000/uL (130-400); RED BLOOD CELL COUNT 3.03 mill/uL (4.7-6.1); RED CELL DISTRIBUTION WIDTH 18.9 % (11.6-14.6)
[2025-04-17 21:04] LABS: INR 1.3
[2025-04-17 21:49] LABS: LYMPHOCYTES % MANUAL 3.0 % (20.0-50.0); MONOCYTES % MANUAL 13.0 % (2.0-8.0); NEUTROPHILS % MANUAL 84.0 % (45.0-75.0); PLATELET ESTIMATE DECREASED
[2025-04-18] VITALS (104 sets, daily range): BP systolic 79–172; BP diastolic 46–131; PULSE 64–132; RESP 13–25; TEMP 36.3–36.9; O2SAT 92–100
[2025-04-18 06:03] LABS: HEMATOCRIT. 25.1 % (42.0-52.0); HEMOGLOBIN. 8.2 g/dL (14.0-18.0); MEAN PLATELET VOLUME 10.4 fl (7.4-10.4); PLATELET 90 x1000/uL (130-400); RED BLOOD CELL COUNT 3.02 mill/uL (4.7-6.1); RED CELL DISTRIBUTION WIDTH 18.2 % (11.6-14.6)
[2025-04-18 06:19] LABS: UREA NITROGEN BLOOD 46 mg/dL (9-23)
[2025-04-18 06:21] LABS: PHOSPHORUS 5.3 mg/dL (2.5-4.9)
[2025-04-18 07:06] LABS: CREATININE 5.2 mg/dL (0.6-1.3)
[2025-04-18 10:32] LABS: BG BASE EXCESS -0.2 mmol/L (-2.0-3.0); BG CARBOXYHEMOGLOBIN 2.0 % (0.5-1.5); BG DEOXYHEMOGLOBIN 7.4 % (0.0-5.0); BG FRACTION INSPIRED OXYGEN 30; BG HCO3 ACT 23.0 mmol/L (21.0-28.0); BG METHEMOGLOBIN 0.4 % (0.5-1.5); BG OXYGEN SATURATION 92.4 % (94.0-98.0); BG OXYHEMOGLOBIN 90.2 % (94.0-98.0); BG PCO2 32.0 mmHg (35.0-48.0); BG PEEP (cmH2O) 5.0 cmH2O; BG PH 7.474 (7.350-7.450); BG PO2 65.6 mmHg (83.0-108.0); BG SAMPLE SITE RIGHT RADIAL; BG TIDAL VOLUME(mL) 450.0 mL; BG TOTAL HEMOGLOBIN 9.2 g/dL (13.5-17.5); BG VENT MODE VENT - AC; BG VENT RATE 12.0 set
[2025-04-18] MEDS: NEBIVOLOL HCL 5 MG TABLET PO SCH (12:27)
[2025-04-18 12:44] LABS: ASPARTATE AMINOTRANSFERASE 59 IU/L (<34); BILIRUBIN DIRECT 0.9 mg/dL (<=3.0); BILIRUBIN TOTAL 1.5 mg/dL (0.1-1.0)
[2025-04-18 12:45] LABS: PROTEIN TOTAL 4.8 g/dL (6.0-8.3)
[2025-04-18] MEDS: ONDANSETRON HCL 4MG/2ML INJ IV PRN (13:40)
[2025-04-18 14:10] LABS: TROPONIN I HIGH SENSITIVITY 138 ng/L (3.0-53)
[2025-04-18 16:53] LABS: BAND% 8.0 % (1.0-6.0); LYMPHOCYTES % MANUAL 7.0 % (20.0-50.0); MONOCYTES % MANUAL 8.0 % (2.0-8.0); NEUTROPHILS % MANUAL 77.0 % (45.0-75.0)
[2025-04-18 16:54] LABS: PLATELET ESTIMATE SLIGHTLY DECREASED
[2025-04-19] VITALS (115 sets, daily range): BP systolic 63–157; BP diastolic 44–104; PULSE 54–107; RESP 15–35; TEMP 36.6696–37.11408; O2SAT 77–100
[2025-04-19 06:13] LABS: HEMATOCRIT. 23.0 % (42.0-52.0); HEMOGLOBIN. 7.7 g/dL (14.0-18.0); MEAN PLATELET VOLUME 10.8 fl (7.4-10.4); PLATELET 80 x1000/uL (130-400); RED BLOOD CELL COUNT 2.74 mill/uL (4.7-6.1); RED CELL DISTRIBUTION WIDTH 18.1 % (11.6-14.6)
[2025-04-19 06:18] LABS: INR 1.3
[2025-04-19 06:37] LABS: CREATININE 4.5 mg/dL (0.6-1.3); UREA NITROGEN BLOOD 34 mg/dL (9-23)
[2025-04-19 06:39] LABS: ASPARTATE AMINOTRANSFERASE 45 IU/L (<34); BILIRUBIN DIRECT 0.8 mg/dL (<=3.0); BILIRUBIN TOTAL 1.3 mg/dL (0.1-1.0); PHOSPHORUS 4.4 mg/dL (2.5-4.9); PROTEIN TOTAL 4.7 g/dL (6.0-8.3)
[2025-04-19 08:13] LABS: TROPONIN I HIGH SENSITIVITY 91 ng/L (3.0-53)
[2025-04-19 10:31] LABS: BG BASE EXCESS 0.1 mmol/L (-2.0-3.0); BG CARBOXYHEMOGLOBIN 2.4 % (0.5-1.5); BG DEOXYHEMOGLOBIN 5.2 % (0.0-5.0); BG FRACTION INSPIRED OXYGEN 30; BG HCO3 ACT 23.5 mmol/L (21.0-28.0); BG METHEMOGLOBIN 0.3 % (0.5-1.5); BG OXYGEN SATURATION 94.7 % (94.0-98.0); BG OXYHEMOGLOBIN 92.1 % (94.0-98.0); BG PCO2 33.4 mmHg (35.0-48.0); BG PEEP (cmH2O) 5.0 cmH2O; BG PH 7.466 (7.350-7.450); BG PO2 72.4 mmHg (83.0-108.0); BG SAMPLE SITE RIGHT RADIAL; BG TIDAL VOLUME(mL) 450.0 mL; BG TOTAL HEMOGLOBIN 9.4 g/dL (13.5-17.5); BG VENT MODE VENT - AC; BG VENT RATE 12.0 set
[2025-04-19] MEDS ORDERED: LIDOCAINE HCL/EPINEPHRINE 1%-EPI 1:100,000 20ML VIAL ONE (10:46)
[2025-04-19 13:47] LABS: BAND% 17.0 % (1.0-6.0); BASOPHILS % MANUAL 1.0 % (0.0-2.0); LYMPHOCYTES % MANUAL 4.0 % (20.0-50.0); MONOCYTES % MANUAL 12.0 % (2.0-8.0); NEUTROPHILS % MANUAL 66.0 % (45.0-75.0)
[2025-04-19 13:48] LABS: PLATELET ESTIMATE DECREASED
[2025-04-19] MEDS ORDERED: FENTANYL CITRATE/PF 50MCG/ML 2ML VIAL ONE (14:24)
[2025-04-19] MEDS ORDERED: ROCURONIUM BROMIDE 10MG/ML VIAL 5ML IV ONE (14:27)
[2025-04-19] MEDS ORDERED: CALCIUM CHLORIDE 1GM/10ML SYR IV ONE (14:36)
[2025-04-19] MEDS ORDERED: ACETAMINOPHEN 1000MG/100ML 100 ML IV ONE (14:38)
[2025-04-19] MEDS ORDERED: ONDANSETRON HCL 4MG/2ML INJ ONE (15:27)
[2025-04-19] MEDS: MIDAZOLAM 100MG/100ML PMX 100 ML IV PRN (16:15)
[2025-04-20] VITALS (124 sets, daily range): BP systolic 31–135; BP diastolic 11–77; PULSE 80–147; RESP 18–47; TEMP 36.1–36.9; O2SAT 46–100
[2025-04-20] MEDS: VASOPRESSIN 20 UNIT in SODIUM CHLORIDE 0.9% 99 ML IV PRN (03:33)
[2025-04-20 03:54] LABS: HEMATOCRIT. 44.2 % (42.0-52.0); HEMOGLOBIN. 13.8 g/dL (14.0-18.0); MEAN PLATELET VOLUME 10.3 fl (7.4-10.4); RED BLOOD CELL COUNT 5.04 mill/uL (4.7-6.1); RED CELL DISTRIBUTION WIDTH 19.8 % (11.6-14.6)
[2025-04-20 04:07] LABS: UREA NITROGEN BLOOD 39 mg/dL (9-23)
[2025-04-20 04:09] LABS: PHOSPHORUS 6.9 mg/dL (2.5-4.9)
[2025-04-20 04:10] LABS: CREATININE 5.2 mg/dL (0.6-1.3)
[2025-04-20] MEDS: NOREPINEPHRINE 8MG/250ML PMX 250 ML IV PRN (04:15)
[2025-04-20 04:18] LABS: BG BASE EXCESS -12.6 mmol/L (-2.0-3.0); BG CARBOXYHEMOGLOBIN 1.3 % (0.5-1.5); BG DEOXYHEMOGLOBIN 12.7 % (0.0-5.0); BG FRACTION INSPIRED OXYGEN 100; BG HCO3 ACT 11.8 mmol/L (21.0-28.0); BG METHEMOGLOBIN 0.1 % (0.5-1.5); BG OXYGEN SATURATION 87.1 % (94.0-98.0); BG OXYHEMOGLOBIN 85.9 % (94.0-98.0); BG PCO2 24.3 mmHg (35.0-48.0); BG PEEP (cmH2O) 5.0 cmH2O; BG PH 7.303 (7.350-7.450); BG PO2 58.9 mmHg (83.0-108.0); BG SAMPLE SITE RIGHT RADIAL; BG TIDAL VOLUME(mL) 450.0 mL; BG TOTAL HEMOGLOBIN 14.4 g/dL (13.5-17.5); BG VENT MODE VENT - AC; BG VENT RATE 12.0 set
[2025-04-20] MEDS: LACTATED RINGERS 1,000 ML IV ONE ×2 (05:21→10:58)
[2025-04-20] MEDS: SODIUM BICARBONATE 100 MEQ in DEXTROSE 5% WATER 900 ML IV SCH (05:36)
[2025-04-20] MEDS: SODIUM BICARBONATE 8.4% 50MEQ/50ML SYR IV NR ×2 (08:09→11:19)
[2025-04-20] MEDS: EPINEPHRINE 10 MG in SODIUM CHLORIDE 0.9% 240 ML IV PRN (08:41)
[2025-04-20 09:19] LABS: BG BASE EXCESS -13.6 mmol/L (-2.0-3.0); BG CARBOXYHEMOGLOBIN 1.1 % (0.5-1.5); BG DEOXYHEMOGLOBIN 6.6 % (0.0-5.0); BG FRACTION INSPIRED OXYGEN 100; BG HCO3 ACT 11.7 mmol/L (21.0-28.0); BG METHEMOGLOBIN 0.3 % (0.5-1.5); BG OXYGEN SATURATION 93.3 % (94.0-98.0); BG OXYHEMOGLOBIN 92.0 % (94.0-98.0); BG PCO2 26.3 mmHg (35.0-48.0); BG PEEP (cmH2O) 12.0 cmH2O; BG PH 7.265 (7.350-7.450); BG PO2 81.1 mmHg (83.0-108.0); BG SAMPLE SITE ALINE; BG TIDAL VOLUME(mL) 450.0 mL; BG TOTAL HEMOGLOBIN 13.2 g/dL (13.5-17.5); BG VENT MODE VENT - AC; BG VENT RATE 32.0 set
[2025-04-20 09:33] LABS: PHOSPHORUS 7.5 mg/dL (2.5-4.9)
[2025-04-20 09:34] LABS: UREA NITROGEN BLOOD 40 mg/dL (9-23)
[2025-04-20 09:35] LABS: HEMATOCRIT. 38.8 % (42.0-52.0); HEMOGLOBIN. 12.5 g/dL (14.0-18.0); MEAN PLATELET VOLUME 11.8 fl (7.4-10.4); PLATELET 81 x1000/uL (130-400); RED BLOOD CELL COUNT 4.47 mill/uL (4.7-6.1); RED CELL DISTRIBUTION WIDTH 18.9 % (11.6-14.6)
[2025-04-20 10:00] LABS: CREATININE 5.1 mg/dL (0.6-1.3)
[2025-04-20] MEDS: PIPERACILLIN/TAZO 3.375G/50ML 50 ML IV SCH (10:58)
[2025-04-20] MEDS: DOPAMINE 400MG/250ML PREMIX 250 ML IV PRN (10:58)
[2025-04-20 11:41] LABS: BAND% 51.0 % (1.0-6.0); LYMPHOCYTES % MANUAL 8.0 % (20.0-50.0); MONOCYTES % MANUAL 13.0 % (2.0-8.0); NEUTROPHILS % MANUAL 28.0 % (45.0-75.0)
[2025-04-20] MEDS: NOREPINEPHRINE 32 MG in DEXT 5% WATER 218 ML IV PRN (11:41)
[2025-04-20 11:43] LABS: PLATELET ESTIMATE DECREASED
[2025-04-20] MEDS: SODIUM BICARBONATE 150 MEQ in DEXTROSE 5% WATER 850 ML IV SCH (11:43)
[2025-04-20 11:44] LABS: BG BASE EXCESS -12.8 mmol/L (-2.0-3.0); BG CARBOXYHEMOGLOBIN 0.2 % (0.5-1.5); BG DEOXYHEMOGLOBIN 3.5 % (0.0-5.0); BG FRACTION INSPIRED OXYGEN 100; BG HCO3 ACT 13.0 mmol/L (21.0-28.0); BG METHEMOGLOBIN 0.3 % (0.5-1.5); BG OXYGEN SATURATION 96.5 % (94.0-98.0); BG OXYHEMOGLOBIN 96.0 % (94.0-98.0); BG PCO2 29.9 mmHg (35.0-48.0); BG PEEP (cmH2O) 12.0 cmH2O; BG PH 7.257 (7.350-7.450); BG PO2 99.8 mmHg (83.0-108.0); BG SAMPLE SITE ALINE; BG TIDAL VOLUME(mL) 450.0 mL; BG TOTAL HEMOGLOBIN 11.2 g/dL (13.5-17.5); BG VENT MODE VENT - AC; BG VENT RATE 32.0 set
[2025-04-20 11:45] LABS: PLATELET 100 x1000/uL (130-400)
[2025-04-20] MEDS: VANCOMYCIN 1.75GM PMX (XELLIA) 350 ML IV NR (12:46)
[2025-04-20 12:53] LABS: BAND% 62.0 % (1.0-6.0); LYMPHOCYTES % MANUAL 7.0 % (20.0-50.0); METAMYELOCYTES % 3.0 % (0-0); MONOCYTES % MANUAL 18.0 % (2.0-8.0); NEUTROPHILS % MANUAL 10.0 % (45.0-75.0); NUCLEATED RED BLOOD CELLS 1 /100 WBC
[2025-04-20 12:54] LABS: PLATELET ESTIMATE DECREASED
[2025-04-20] MEDS: EPINEPHRINE 20 MG in SODIUM CHLORIDE 0.9% 480 ML IV PRN (14:17)
[2025-04-20] MEDS: HYDROCORTISONE SOD SUCCINATE 100 MG/2 ML VIAL IV SCH (15:54)
[2025-04-20 16:16] LABS: BG BASE EXCESS -18.1 mmol/L (-2.0-3.0); BG CARBOXYHEMOGLOBIN 0.3 % (0.5-1.5); BG DEOXYHEMOGLOBIN 1.7 % (0.0-5.0); BG FRACTION INSPIRED OXYGEN 100; BG HCO3 ACT 10.3 mmol/L (21.0-28.0); BG METHEMOGLOBIN 0.3 % (0.5-1.5); BG OXYGEN SATURATION 98.3 % (94.0-98.0); BG OXYHEMOGLOBIN 97.7 % (94.0-98.0); BG PCO2 33.4 mmHg (35.0-48.0); BG PEEP (cmH2O) 10.0 cmH2O; BG PH 7.107 (7.350-7.450); BG PO2 147.3 mmHg (83.0-108.0); BG SAMPLE SITE ALINE; BG TIDAL VOLUME(mL) 450.0 mL; BG TOTAL HEMOGLOBIN 10.8 g/dL (13.5-17.5); BG VENT MODE VENT - AC; BG VENT RATE 32.0 set
[2025-04-20 21:28] LABS: BG BASE EXCESS -21.2 mmol/L (-2.0-3.0); BG CARBOXYHEMOGLOBIN 0.2 % (0.5-1.5); BG DEOXYHEMOGLOBIN 9.5 % (0.0-5.0); BG FRACTION INSPIRED OXYGEN 90; BG HCO3 ACT 7.8 mmol/L (21.0-28.0); BG METHEMOGLOBIN 0.2 % (0.5-1.5); BG OXYGEN SATURATION 90.5 % (94.0-98.0); BG OXYHEMOGLOBIN 90.1 % (94.0-98.0); BG PCO2 28.8 mmHg (35.0-48.0); BG PEEP (cmH2O) 10.0 cmH2O; BG PH 7.051 (7.350-7.450); BG PO2 82.3 mmHg (83.0-108.0); BG SAMPLE SITE ALINE; BG TIDAL VOLUME(mL) 450.0 mL; BG TOTAL HEMOGLOBIN 10.4 g/dL (13.5-17.5); BG VENT MODE VENT - AC; BG VENT RATE 28.0 set
[2025-04-20] MEDS: SODIUM BICARBONATE 8.4% 50MEQ/50ML SYR IV SCH (22:50)
[2025-04-21] VITALS (80 sets, daily range): BP systolic 33–85; BP diastolic 18–54; PULSE 0–150; RESP 8–42; TEMP 35.6–36.2; O2SAT 48–90
[2025-04-21] MEDS: MIDAZOLAM HCL 2 MG/2 ML VIAL IV SCH (00:27)
[2025-04-21 06:21] LABS: BG BASE EXCESS -24.2 mmol/L (-2.0-3.0); BG CARBOXYHEMOGLOBIN 1.2 % (0.5-1.5); BG DEOXYHEMOGLOBIN 4.4 % (0.0-5.0); BG FRACTION INSPIRED OXYGEN 100; BG HCO3 ACT 7.0 mmol/L (21.0-28.0); BG METHEMOGLOBIN 0.2 % (0.5-1.5); BG OXYGEN SATURATION 95.5 % (94.0-98.0); BG OXYHEMOGLOBIN 94.2 % (94.0-98.0); BG PCO2 35.5 mmHg (35.0-48.0); BG PH 6.912 (7.350-7.450); BG PO2 110.8 mmHg (83.0-108.0); BG SAMPLE SITE ALINE; BG TIDAL VOLUME(mL) 450.0 mL; BG TOTAL HEMOGLOBIN 8.5 g/dL (13.5-17.5); BG VENT MODE VENT - AC; BG VENT RATE 28.0 set
[2025-04-21 06:47] LABS: CREATININE 4.9 mg/dL (0.6-1.3); UREA NITROGEN BLOOD 38 mg/dL (9-23)
[2025-04-21 06:51] LABS: PHOSPHORUS 10.4 mg/dL (2.5-4.9)
[2025-04-21] MEDS: SODIUM BICARBONATE 8.4% 50MEQ/50ML SYR IV SCH (07:00)
[2025-04-21] MEDS ORDERED: SODIUM BICARBONATE 8.4% 50MEQ/50ML SYR IV NR (08:00)
[2025-04-21 09:39] LABS: BG BASE EXCESS -25.5 mmol/L (-2.0-3.0); BG CARBOXYHEMOGLOBIN 1.5 % (0.5-1.5); BG DEOXYHEMOGLOBIN 11.6 % (0.0-5.0); BG FRACTION INSPIRED OXYGEN 100; BG HCO3 ACT 4.8 mmol/L (21.0-28.0); BG METHEMOGLOBIN 0.6 % (0.5-1.5); BG OXYGEN SATURATION 88.2 % (94.0-98.0); BG OXYHEMOGLOBIN 86.3 % (94.0-98.0); BG PCO2 24.3 mmHg (35.0-48.0); BG PEEP (cmH2O) 8.0 cmH2O; BG PH 6.909 (7.350-7.450); BG PO2 80.7 mmHg (83.0-108.0); BG SAMPLE SITE RIGHT RADIAL; BG TIDAL VOLUME(mL) 450.0 mL; BG TOTAL HEMOGLOBIN 5.4 g/dL (13.5-17.5); BG VENT MODE VENT - PRVC; BG VENT RATE 34.0 set
[2025-04-21] MEDS: SODIUM PHOSPHATE 20 MMOL in DEXT 5% WATER 243.3333 ML IV NR (09:59)
[2025-04-21 11:47] LABS: MEAN PLATELET VOLUME 11.4 fl (7.4-10.4); RED BLOOD CELL COUNT 2.28 mill/uL (4.7-6.1); RED CELL DISTRIBUTION WIDTH 20.1 % (11.6-14.6)
[2025-04-21 12:51] LABS: HEMATOCRIT. 22.9 % (42.0-52.0); HEMOGLOBIN. 6.3 g/dL (14.0-18.0)
[2025-04-21 12:52] LABS: PLATELET 32 x1000/uL (130-400)
[2025-04-21 14:23] LABS: BAND% 32.0 % (1.0-6.0); LYMPHOCYTES % MANUAL 25.0 % (20.0-50.0); METAMYELOCYTES % 10.0 % (0-0); MONOCYTES % MANUAL 3.0 % (2.0-8.0); MYELOCYTES % 1.0 % (0-0); NEUTROPHILS % MANUAL 29.0 % (45.0-75.0); NUCLEATED RED BLOOD CELLS 3 /100 WBC
[2025-04-21 14:24] LABS: PLATELET ESTIMATE MARKEDLY DECREASED
[2025-04-21 17:07] LABS: INR 4.2
== END 2025-04-21 16:44 | DRG 4 ==
LOC: ER 17:13 → 5EST 21:36 → EDBEDREQTM 21:54 → EDBEDREQ 21:54 → EDBEDREQSVC 21:55 → ENRESERV 22:14 → CVICU 04-04 01:19
PROVIDERS: ADMIT Internal Medicine Nephrology; ATTEND Internal Medicine Nephrology
PROC: 5A09357 Assistance with Respiratory Ventilation, Less than 24 Consecutive Hours, Continuous Positive Airway Pressure (ICD-10-PCS; 2025-04-03)
PROC: 5A1955Z Respiratory Ventilation, Greater than 96 Consecutive Hours (ICD-10-PCS; 2025-04-04)
PROC: 0BH17EZ Insertion of Endotracheal Airway into Trachea, Via Natural or Artificial Opening (ICD-10-PCS; 2025-04-04)
PROC: 5A09357 Assistance with Respiratory Ventilation, Less than 24 Consecutive Hours, Continuous Positive Airway Pressure (ICD-10-PCS; 2025-04-04)
PROC: 03HY32Z Insertion of Monitoring Device into Upper Artery, Percutaneous Approach (ICD-10-PCS; 2025-04-04)
PROC: 5A1D70Z Performance of Urinary Filtration, Intermittent, Less than 6 Hours Per Day (ICD-10-PCS; 2025-04-06)
PROC: 02HV33Z Insertion of Infusion Device into Superior Vena Cava, Percutaneous Approach (ICD-10-PCS; 2025-04-06)
PROC: B548ZZA Ultrasonography of Superior Vena Cava, Guidance (ICD-10-PCS; 2025-04-06)
PROC: 5A1D70Z Performance of Urinary Filtration, Intermittent, Less than 6 Hours Per Day (ICD-10-PCS; 2025-04-08)
PROC: 5A1D70Z Performance of Urinary Filtration, Intermittent, Less than 6 Hours Per Day (ICD-10-PCS; 2025-04-09)
PROC: 5A1D70Z Performance of Urinary Filtration, Intermittent, Less than 6 Hours Per Day (ICD-10-PCS; 2025-04-10)
PROC: 5A1D70Z Performance of Urinary Filtration, Intermittent, Less than 6 Hours Per Day (ICD-10-PCS; 2025-04-12)
PROC: 02HV33Z Insertion of Infusion Device into Superior Vena Cava, Percutaneous Approach (ICD-10-PCS; 2025-04-12)
PROC: B548ZZA Ultrasonography of Superior Vena Cava, Guidance (ICD-10-PCS; 2025-04-12)
PROC: 5A1D70Z Performance of Urinary Filtration, Intermittent, Less than 6 Hours Per Day (ICD-10-PCS; 2025-04-14)
PROC: 5A1D70Z Performance of Urinary Filtration, Intermittent, Less than 6 Hours Per Day (ICD-10-PCS; 2025-04-15)
PROC: 5A1D70Z Performance of Urinary Filtration, Intermittent, Less than 6 Hours Per Day (ICD-10-PCS; 2025-04-16)
PROC: 0D9670Z Drainage of Stomach with Drainage Device, Via Natural or Artificial Opening (ICD-10-PCS; 2025-04-16)
PROC: 30233N1 Transfusion of Nonautologous Red Blood Cells into Peripheral Vein, Percutaneous Approach (ICD-10-PCS; 2025-04-17)
PROC: 5A1D70Z Performance of Urinary Filtration, Intermittent, Less than 6 Hours Per Day (ICD-10-PCS; 2025-04-18)
PROC: 0B110F4 Bypass Trachea to Cutaneous with Tracheostomy Device, Open Approach (ICD-10-PCS; principal; 2025-04-19)
PROC: 5A1D70Z Performance of Urinary Filtration, Intermittent, Less than 6 Hours Per Day (ICD-10-PCS; 2025-04-20)
PROC: 03HY32Z Insertion of Monitoring Device into Upper Artery, Percutaneous Approach (ICD-10-PCS; 2025-04-20)
PROC: 5A12012 Performance of Cardiac Output, Single, Manual (ICD-10-PCS; 2025-04-21)
PROC: 5A1D70Z Performance of Urinary Filtration, Intermittent, Less than 6 Hours Per Day (ICD-10-PCS; 2025-04-21)
DX: A41.9 Sepsis, unspecified organism (principal); E43 Unspecified severe protein-calorie malnutrition; G93.41 Metabolic encephalopathy; R65.21 Severe sepsis with septic shock; N17.0 Acute kidney failure with tubular necrosis; J69.0 Pneumonitis due to inhalation of food and vomit; J96.21 Acute and chronic respiratory failure with hypoxia; K72.00 Acute and subacute hepatic failure without coma; J18.9 Pneumonia, unspecified organism; I21.A1 Myocardial infarction type 2; C18.9 Malignant neoplasm of colon, unspecified; I42.9 Cardiomyopathy, unspecified; I47.19 Other supraventricular tachycardia; N39.0 Urinary tract infection, site not specified; E87.1 Hypo-osmolality and hyponatremia; N25.81 Secondary hyperparathyroidism of renal origin; E87.4 Mixed disorder of acid-base balance; I13.0 Hypertensive heart and chronic kidney disease with heart failure and stage 1 through stage 4 chronic kidney disease, or unspecified chronic kidney disease; K40.30 Unilateral inguinal hernia, with obstruction, without gangrene, not specified as recurrent; I50.20 Unspecified systolic (congestive) heart failure; Z99.11 Dependence on respirator [ventilator] status; E87.5 Hyperkalemia; D63.8 Anemia in other chronic diseases classified elsewhere; I27.20 Pulmonary hypertension, unspecified; I48.91 Unspecified atrial fibrillation; I07.1 Rheumatic tricuspid insufficiency; E83.51 Hypocalcemia; E83.39 Other disorders of phosphorus metabolism; K52.839 Microscopic colitis, unspecified; D50.9 Iron deficiency anemia, unspecified; N18.9 Chronic kidney disease, unspecified; D69.59 Other secondary thrombocytopenia; E78.5 Hyperlipidemia, unspecified; I25.10 Atherosclerotic heart disease of native coronary artery without angina pectoris; I49.3 Ventricular premature depolarization; J45.909 Unspecified asthma, uncomplicated; E83.42 Hypomagnesemia; K76.0 Fatty (change of) liver, not elsewhere classified; Z68.30 Body mass index [BMI] 30.0-30.9, adult; Z79.82 Long term (current) use of aspirin; Z80.0 Family history of malignant neoplasm of digestive organs; Z88.6 Allergy status to analgesic agent; Z95.5 Presence of coronary angioplasty implant and graft; Z88.8 Allergy status to other drugs, medicaments and biological substances; Z68.32 Body mass index [BMI] 32.0-32.9, adult
CPT/HCPCS: 31720; 36415; 36556; 36573; 36600; 71045; 74018; 74177; 76604; 76700; 76705; 76770; 76870; 77001; 80048; 80053; 80076; 80202; 80305; 80320; 81003; 82024; 82040; 82105; 82247; 82270; 82330; 82375; 82378; 82533; 82550; 82553; 82805; 82962; 83036; 83605; 83735; 83880; 83930; 83970; 84100; 84145; 84443; 84478; 84484; 85014; 85018; 85025; 85027; 85044; 85379; 85384; 86301; 86304; 86705; 86709; 86850; 86900; 86920; 87070; 87340; 87420; 87426; 87804; 90935; 93005; 93306; 93923; 93976; 94002; 94003; 94070; 94640; 94660; 94664; 94760; 98960; 99285; A4606; C1725; C1752; C1887; J0456; J0610; J0692; J0696; J1160; J1171; J1265; J1650; J1720; J1815; J2004; J2250; J2270; J2371; J2405; J2470; J2543; J2765; J2919; J3010; J3373; J3475; J3480; J3490; J7030; J7040; J7050; J7060; J7070; P9016; P9041; Q9967; G0480; J0131